=== PATIENT | female | born 1940 | race Caucasian/White ===

== ENCOUNTER 2016-06-15 07:17 | Day surgery (SDC) ==
[2016-02-27 14:19] VITALS: BMI 35.9
[2016-06-15] MEDS: TETRACAINE 0.5% UNIT-DOSE OP PRN ×3 (07:40→08:10)
[2016-06-15] MEDS: AK-DILATE 10% OPTH SOL OP PRN ×3 (07:40→07:50)
[2016-06-15] MEDS: OCUFEN 0.03% OPTH SOL OP PRN ×3 (07:40→08:10)
[2016-06-15] MEDS: CYCLOGYL 2% OPTH OP PRN ×3 (07:40→07:50)
[2016-06-15] MEDS ORDERED: LIDOCAINE 1% 20 ML MDV ID ONE (07:45)
[2016-06-15] MEDS ORDERED: LIDOCAINE 1% 20 ML MDV ONE (07:45)
[2016-06-15] MEDS ORDERED: ALBUTEROL 0.083% NEB NEB STA (08:10)
[2016-06-15] MEDS ORDERED: TETRACAINE 0.5% OPTH SOL OP ONE (08:10)
[2016-06-15] MEDS ORDERED: BETADINE OPTH PREP OP ONE (09:00)
[2016-06-15] MEDS ORDERED: VERSED ONE (09:00)
[2016-06-15] MEDS ORDERED: SUBLIMAZE ONE (09:00)
[2016-06-15] MEDS ORDERED: LIDOCAINE 1 % AMP 5 ML (SUTURES) INJ ONE (09:05)
[2016-06-15] MEDS ORDERED: EPINEPHRINE 1:1,000 AMP IR ONE (09:05)
[2016-06-15] MEDS ORDERED: TIMOPTIC 0.5% OPTH OP ONE (09:20)
[2016-06-15] MEDS ORDERED: DIAMOX ONE (10:08)
[2016-06-15] MEDS ORDERED: DIAMOX PO ONE (10:08)
[2016-06-15 10:10] VITALS: BP 120/69; TEMP 97.9
--- NOTE | 2016-06-16 10:31 | OP ---
PREOPERATIVE DIAGNOSIS: CORTICAL CATARACT, NUCLEAR SCLEROTIC CATARACT, RIGHT EYE. RIGHT BROW GROWTH PAPILLOMA POSTOPERATIVE DIAGNOSIS: SAME. OPERATION: 1. PHACOEMULSIFICATION ASPIRATION OF CATARACT RIGHT EYE. PLACEMENT OF POSTERIOR CHAMBER LENS. PHACO TIME 38.1 SECONDS AT 5% POWER. LENS MODEL KISHORE [id number]. DIOPTER +19.0D. 2. EXCISIONAL BIOPSY OF RIGHT BROW PAPILLOMA TECHNIQUE: CLEAR CORNEA. ANESTHESIA: TOPICAL ANESTHESIA W/ANESTHESIA MONITORING. OPERATIVE REPORT: Topical anesthesia consisting of Tetracaine was applied to the cornea and Xylocaine Methyl Paraben free of MFP was injected intracamerally into the anterior chamber. The patient was then brought into the operating room , prepped and draped in the usual ophthalmic manner. A lid speculum was placed and the operating microscope was used. A paracentesis was made at the 3 o' clock position. A clear corneal incision was made just out to the limbus. The anterior chamber was entered just inside the clear cornea. Viscoelastic was injected into the anterior chamber. A capsulotomy was performed with a bent # 27 gauge needle. Phacoemulsification was then performed in the posterior chamber. After completion of the phacoemulsification, residual cortical material was aspirated with the irrigation-aspiration system. The posterior capsule was polished. Viscoelastic was injected into the anterior and posterior chambers to inflate the capsular bag. Lens were placed via an Unfolder system and stabilized in the bag. Viscoelastic was removed from the anterior chamber. The wound was checked for any leakage. The four sponges were removed from the fornix. Topical antibiotic steroid and nonsteroidal drops were also applied to the cornea. A Cabrera shield was applied. Papilloma growth right eye: Local anesthesia was infiltrated around growth. Area was prepped with Betadine and draped. The growth was excised and bed was cauterized. Antibiotic ointment was applied. The patient left the operating room in good condition without any complications. INTRAOPERATIVE MEDICATIONS: Xylocaine Methyl Paraben Free MPF MTDD
== END 2016-06-15 10:22 | disposition home or self-care (01) ==
LOC: SURG 07:17
PROVIDERS: ATTEND Ophthalmology
DX: H25.11 Age-related nuclear cataract, right eye (principal); L82.1 Other seborrheic keratosis; H53.8 Other visual disturbances
CPT/HCPCS: 94640

== ENCOUNTER 2017-01-21 17:23 | Emergency (ER) ==
[2017-01-21 17:23] VITALS: BMI 35.9
[2017-01-21 17:32] VITALS: BP 116/64; TEMP 98.1
[2017-01-21] MEDS ORDERED: MORPHINE 4 MG/ML VIAL IVP STA (17:40)
[2017-01-21] MEDS ORDERED: ZOFRAN 4 MG/2 ML IVP STA (17:40)
[2017-01-21] MEDS ORDERED: ZOFRAN 4 MG/2 ML IM STA (17:41)
[2017-01-21] MEDS ORDERED: MORPHINE 10 MG/ML SYRINGE IM STA (17:41)
--- NOTE | 2017-01-21 17:46 | ED.PDOC ---
General ED Provider: Dr. ROSALES PETERSON Chief Complaint: Back Pain Stated Complaint: BACK PAIN Time Seen by Physician: 17:30 (SEEN WITH RIANA AT ALL TIMES ) Mode of Arrival: Walk-In Information Source: Patient Exam Limitations: No limitations Primary Care Provider: MARTHA LOMAX Nursing and Triage Documentation Reviewed and Agree: Yes (NO INJURY ) Musculoskeletal Complaint Exam - Back Pain Complaint/Exam Mechanism of Injury: Reports: No known trauma Onset/Duration: CHRONIC AWAITING SURGERY FOR BACK PROBLEMS Symptoms Are: Still present Timing: Constant Episodes Lasting: Days Initial Severity: Moderate Current Severity: Moderate Location: Reports: Discrete Character: Reports: Aching Aggravating: Reports: Movements, Lifting, Bending, Walking Alleviating: Reports: Rest, Position Associated Signs and Symptoms: Denies: Swelling, Redness, Bruising, Fever, Weakness, Numbness, Tingling, Abdominal pain, Flank pain, Bladder incontinence, Bowel incontinence, Weight loss, Pain with weight bearing Related History: Reports: Similar episode TAD Risk Factors: Reports: Hypertension AAA Risk Factors: Reports: None Cauda Equina Risk Factors: Reports: None Epidural Abcess Risk Factors: Reports: None Related Surgical History: Reports: None Focal Tenderness: No Paraspinal Muscle Tenderness: No Paraspinal Muscle Spasm: No Scoliosis: No Lordosis: No Kyphosis: No SLR Test: Right Negative, Left Negative Focal Weakness: Present: None Focal Sensory Loss: Present: None Gait: Present: Normal Differential Diagnoses: Strain, Sprain Review of Systems - Review Of Systems Constitutional: Reports: No symptoms Eyes: Reports: No symptoms Ears, Nose, Mouth, Throat: Reports: No symptoms Respiratory: Reports: No symptoms Cardiac: Reports: No symptoms GI: Reports: No symptoms : Reports: No symptoms Musculoskeletal: Reports: Back pain Skin: Reports: No symptoms Neurological: Reports: No symptoms Endocrine: Reports: No symptoms Hematologic/Lymphatic: Reports: No symptoms All Other Systems: Reviewed and Negative Past Medical History - Past Medical History Previously Healthy: Yes Endocrine: Reports: Dyslipidemia Cardiovascular: Reports: Hypertension Respiratory: Reports: Asthma Hematological: Reports: None Gastrointestinal: Reports: None Genitourinary: Reports: None Neuro/Psych: Reports: None Musculoskeletal: Reports: Other (RIGHT FOOT PAIN) Cancer: Reports: None Last Menstrual Period: na - Surgical History General Surgical History: Reports: Tubal ligation, Orthopedic - Family History Family History: Reports: Unknown - Social History Smoking Status: Former smoker Hx Substance Use: No Alcohol Screening: Occasionally - Immunizations Tetanus Shot up to Date: Yes Physical Exam - Physical Exam Appearance: Well-appearing, No pain distress, Well-nourished Eyes: PILO, EOMI, Conjunctiva clear ENT: Ears normal, Nose normal, Oropharynx normal Respiratory: Airway patent, Breath sounds clear, Breath sounds equal, Respirations nonlabored Cardiovascular: RRR, Pulses normal, No rub, No murmur GI/: Soft, Nontender, No masses, Bowel sounds normal, No Organomegaly Musculoskeletal: Normal strength, ROM intact, No edema, No calf tenderness Skin: Warm, Dry, Normal color Neurological: Sensation intact, Motor intact, Reflexes intact, Cranial nerves intact, Alert, Oriented Psychiatric: Affect appropriate, Mood appropriate Critical Care Note - Critical Care Note Total Time (mins): 0 Course - Course Orders, Labs, Meds: Orders Category Date Time Status Morphine Sulfate [Morphine 10 mg/ml Syringe] MEDS 01/21/17 17:41 Discontinued 8 mg IM ONCE STA Ondansetron HCl/Pf [Zofran 4 mg/2 ml] MEDS 01/21/17 17:41 Discontinued 4 mg IM ONCE STA Ondansetron HCl/Pf [Zofran 4 mg/2 ml] MEDS 01/21/17 17:40 Stop Req 4 mg IVP ONCE STA Medications Discontinued Medications Generic Name Dose Route Start Last Admin Trade Name Freq PRN Reason Stop Dose Admin Morphine Sulfate 8 mg 01/21/17 17:41 Morphine 10 Mg/Ml Syringe IM 01/21/17 17:42 ONCE STA Ondansetron HCl 4 mg 01/21/17 17:41 Zofran 4 Mg/2 Ml IM 01/21/17 17:42 ONCE STA Vital Signs: Temp Pulse Resp BP Pulse Ox 01/21/17 17:24 98.1 F 74 20 116/64 91 L Departure - Departure Time of Disposition: 17:46 Disposition: HOME SELF-CARE Discharge Problem: Low back pain Qualifiers: Chronicity: unspecified Back pain laterality: unspecified Sciatica presence: without sciatica Qualified Code(s): M54.5 - Low back pain Instructions: Chronic Back Pain (ED) Condition: Good Pt referred to PMD for follow-up: Yes Additional Instructions: Please call your Family Physician as soon as possible to schedule a follow-up appointment. Allergies/Adverse Reactions: Allergies cefuroxime axetil [From Ceftin] Adverse Reaction (Verified 01/21/17 17:34) RESPIRATORY, ITCHING, RASH meloxicam Adverse Reaction (Verified 01/21/17 17:34) Rash Home Medications: Ambulatory Orders Aspirin [Aspirin EC] 81 mg PO DAILYWM 01/27/15 Atenolol 100 mg PO BEDTIME 01/27/15 Fluticasone/Salmeterol [Advair Hfa 115-21 Mcg Inhaler] 2 puff IH BID 01/27/15 Gabapentin 300 mg PO TID 01/27/15 Ipratropium/Albuterol Sulfate [Combivent Respimat Inhal [place]] 1 spray IH Q6H PRN 01/27/15 Simvastatin 10 mg PO DAILY 01/27/15 Theophylline Anhydrous [Theophylline] 300 mg PO BID 01/27/15 Verapamil HCl [Verelan Pm] 100 mg PO DAILY 01/27/15 Zolpidem Tartrate [Ambien] 10 mg PO BEDTIME PRN 01/27/15 Hydrocodone/Acetaminophen [Mcdonald 10-325 Tablet] 1 each PO Q6HR PRN #7 tablet 01/16 Alprazolam 0.5 mg PO Q6H PRN 04/13/16 Celecoxib 400 mg PO DAILY 04/13/16 Cholecalciferol (Vitamin D3) [Vitamin D3] 1,000 unit PO DAILY 04/13/16 Multivitamin 1 cap PO DAILY 04/13/16 Tizanidine HCl 4 mg PO Q8H PRN 04/13/16 Hydrochlorothiazide 25 mg PO DAILY 06/15/16
== END 2017-01-21 18:44 | disposition home or self-care (01) ==
LOC: ED 17:23
DX: M54.5 Low back pain (principal)
CPT/HCPCS: 96372; 99283

== ENCOUNTER 2023-04-02 22:32 | Inpatient (IN) ==
--- NOTE | 2023-04-02 22:57 | ED.PDOC ---
General ED Provider: Dr. RANDOLPH RIVERA DO Chief Complaint: Shortness of Air Stated Complaint: 82-year-old female presents [facility] the ER from local [facility] reporting shortness of breath. Is been persistent throughout today. She had a chest x-ray done portable at the retirement and told that she had bilateral pneumonia. Patient has history of COPD and is oxygen dependent with a baseline requirement of 3 L by nasal cannula. EMS reports that her oxygen saturations were in the 80s upon arrival but upon increasing the nasal cannula to 4 L is providing a breathing treatment, oxygen saturation came up to 96%. Patient was otherwise in no acute distress and no other acute interventions given in route. Patient denies chest pain, abdominal pain, GI or symptoms. She does report that she is felt somewhat fevered. Time Seen by Provider: 04/02/23 22:45 Mode of Arrival: Ambulance Information Source: Patient and EMT Exam Limitations: No limitations Primary Care Provider: BRENNON YORK Nursing and Triage Documentation Reviewed and Agree: Yes Review of Systems Review Of Systems Constitutional: Reports Fever, Malaise and Weakness; Denies Chills, Diaphoresis, Sweats or Loss of appetite All Other Systems: Reviewed and Negative [facility] Medical History SNHL (sensorineural hearing loss) H90.5 - Unspecified sensorineural hearing loss (ICD-10) Surgical History History of hip replacement Z96.649 - Presence of unspecified artificial hip joint (ICD-10) Female Reproductive History Menstrual Hx Hysterectomy: No Hx Tubal Ligation: Yes Physical Exam Physical Exam Appearance: Reports Well-appearing and Well-nourished; Denies Ill-appearing Ill-appearing: None Pain Distress: None Eyes: Reports PILO and EOMI ENT: Reports Nose normal and Oropharynx normal Neck: Supple Respiratory: Reports Airway patent, Respirations nonlabored and Rhonchi (Left sided, upper lobe predom) Cardiovascular: Reports RRR and Pulses normal GI/: Reports Soft and Nontender Musculoskeletal: Reports Normal strength and No edema Skin: Reports Warm, Dry and Normal color Neurological: Reports Sensation intact Psychiatric: Reports Affect appropriate and Mood appropriate Interpretation EKG Interpretation EKG Interpretation By: ED Physician Time of EKG #1: 22:55 Rate: Normal Rhythm: Sinus Ectopy: None [place]: NL ST Segment: Normal Re-Evaluation Re-Evaluation Time of Re-Evaluation: 00:54 Status: Unchanged Vital Signs Stable: Yes Appearance: NAD CV: RRR Additional Comments: I reviewed the patient's labs and she has an increase in her bilirubin as well as her alkaline phosphatase. I do not have a reason by history to explain these findings. She has a chronic anemia and does feel pale more so than jaundiced however jaundice could be at play. She also has a significant elevation in her BNP and supported by the findings on CT scan. CT also notes the possibility of mucous plugging as well as fluid collection with malignancy not excluded. This is concerning given the right-sided nature of it and proximity to the liver in the case of an acute liver failure or malignancy causing transudate. I have ordered a CT scan of the abdomen pelvis and this patient will likely require transfer for further management and stabilization Re-Evaluation Time of Re-Evaluation: 02:24 Status: Unchanged Appearance: Other (anxious) Skin: Warm and Dry Neuro: Alert and Oriented X3 CV: RRR Additional Comments: pt BP is persistently low. will give fluid bolus and trickle rate to try and improve, but will do this cautiously due to the elevated BNP and hypoxia. Will consider pressors to include trial of push dose trial if pressure does not improve quickly. Pt will require transfer for possible mucous plug, but also for what may be new onset CHF and hepatic congestion since I cannot find any record of previous CHF diagnosis. Pt will require Pulmonology as well as Cardiology in my opinion. Physician Notification Case Discussed [facility] Time [facility] Notification: 02:45 Admit To: Inpatient and Other (transfer) Critical Care Note Critical Care Note Total Critical Care Time (mins): 180 Comments: Acute on chronic respiratory failure, new onset heart failure, constant cardiac monitoring, pressor dosage, diuretics as well as fluid bolus. Cardiac output measure control Course Course 04/02/23 22:53 04/02/23 22:53 Orders, Labs, Meds: Lab Review 04/02/23 04/02/23 04/02/23 22:42 22:53 23:00 WBC 9.90 RBC 3.87 L Hgb 11.2 L Hct 36.0 L MCV 93.0 MCH 28.9 MCHC 31.1 L RDW Coeff of Kathrin 15.9 H Plt Count 135 L Neutrophils % (Manual) 77.0 H Band Neutrophils % 8.0 H Lymphocytes % (Manual) 1.0 L Monocytes % (Manual) 7.0 Metamyelocytes % 5.0 H Myelocytes % 2.0 H Anisocytosis Not present Sodium 131.1 L Potassium 4.79 Chloride 91.2 L Carbon Dioxide 32.0 H Anion Gap 12.69 BUN 37.9 H Creatinine 1.24 Estimated GFR (MDRD) 41.00 BUN/Creatinine Ratio 30.56 Glucose 110.2 H Calcium 9.11 Total Bilirubin 1.72 H AST 49.1 H ALT 43.0 H Alkaline Phosphatase 146.1 H Troponin I 0.048 NT-Pro-B Natriuret Pep 95931 H Total Protein 7.97 Albumin 4.13 Globulin 3.84 Albumin/Globulin Ratio 1.07 Influ A Molecular Assay Negative by naat Influ B Molecular Assay Negative by naat SARS CoV-2 RNA Rapid KIMBERLEY Negative Orders Category Date Time Status EKG-(ED ONLY) Stat CARDIO 04/02/23 22:41 Completed NEBULIZER TREATMENT Stat CARDIO 04/02/23 22:47 Completed NEBULIZER TREATMENT Stat CARDIO 04/02/23 23:03 Completed NPO REMINDER: IMAGING ONCE CARE 04/02/23 22:41 Completed CBC W/ AUTO DIFF Stat LAB 04/02/23 22:53 Completed CMP [COMPREHENSIVE METABOLIC PANEL] Stat LAB 04/02/23 22:53 Completed COVID [SARS COV-2 RNA RAPID [place]IMBERLEY] Stat LAB 04/02/23 23:00 Completed FLU A & B MOLECULAR [FLU A/B MOLECULAR] Stat LAB 04/02/23 23:00 Completed MANUAL DIFFERENTIAL Stat LAB 04/02/23 22:53 Completed PROBNP ED [NT-PROBNP(ED)] Stat LAB 04/03/23 Completed TROPONIN I Stat LAB 04/03/23 00:45 Completed Albuterol Sulfate 0.083% Neb [Albuterol 0.083% Neb] Meds 04/02/23 23:03 Discontinued 2.5 mg NEB ONCE STA Furosemide [Lasix] Meds 04/03/23 00:53 Discontinued 60 mg IVP ONCE ONE Lorazepam [Ativan] Meds 04/03/23 02:06 Discontinued 0.5 mg IVP ONCE ONE Morphine Sulfate [Morphine 4 mg/ml Syringe] Meds 04/03/23 02:06 Discontinued 2 mg IVP ONCE ONE Phenylephrine Inj [Phenylephrine] Meds 04/03/23 02:43 Discontinued 10,000 mcg .ROUTE .STK-MED ONE Phenylephrine Inj [Phenylephrine] 10,000 mcg Meds 04/03/23 02:30 Active 0.9 % Sodium Chloride [Sodium Chloride] 250 ml IV TITRATION Piperacillin Sodium/Tazobactam [Zosyn 3.375 gm] 3.375 Meds 04/03/23 02:04 Discontinued gm 0.9 % Sodium Chloride [Sodium Chloride 100Ml] 100 ml IV ONCE Sodium Chloride 0.9% [Sodium Chloride] 500 ml Meds 04/03/23 02:[address] ABDOMEN/PELVIS WO CONTRAST Stat RADS 04/03/23 00:[address] CHEST W/CONTRAST Stat RADS 04/02/23 22:40 Completed Medications Generic Name Dose Route Start Last Admin Trade Name Freq PRN Reason Stop Dose Admin Phenylephrine HCl 10,000 mcg/ 251 mls @ 63.553 mls/hr 04/03/23 02:30 04/03/23 02:47 Sodium Chloride IV 0.5 mcg/kg/min TITRATION ANNALISE 63.6 mls/hr Administration Protocol 0.5 MCG/KG/MIN Discontinued Medications Generic Name Dose Route Start Last Admin Trade Name Freq PRN Reason Stop Dose Admin Albuterol Sulfate 2.5 mg 04/02/23 23:03 04/02/23 23:16 Albuterol Sulfate 0.083% Vial.Neb NEB 04/02/23 23:04 2.5 mg ONCE STA Administration Furosemide 60 mg 04/03/23 00:53 04/03/23 01:17 Furosemide Inj 100 Mg/10 Ml Vial IVP 04/03/23 00:54 60 mg ONCE ONE Administration Sodium Chloride 500 mls @ 500 mls/hr 04/03/23 02:04 04/03/23 02:20 Sodium Chloride IV 04/03/23 03:03 500 mls/hr BOLUS STA Administration Piperacillin Sod/Tazobactam 100 mls @ 200 mls/hr 04/03/23 02:04 04/03/23 02:21 Sod 3.375 gm/ Sodium Chloride IV 04/03/23 02:33 200 mls/hr ONCE ONE Administration Lorazepam 0.5 mg 04/03/23 02:06 04/03/23 02:14 Lorazepam Inj 2 Mg/Ml Vial IVP 04/03/23 02:07 0.5 mg ONCE ONE Administration Morphine Sulfate 2 mg 04/03/23 02:06 Morphine Sulfate 4 Mg/Ml Syringe IVP 04/03/23 02:07 ONCE ONE Vital Signs: Temp Pulse Resp BP Pulse Ox O2 Flow Rate 04/03/23 02:47 81 22 H 99/50 L 04/03/23 01:26 80 18 96/47 L 96 3 04/02/23 22:35 97.1 F L 80 26 H 95/47 L 96 Discharge Plan Discharge Patient Disposition: TSF ICF Discharge Problem: Heart failure with acute decompensation, type unknown Qualifiers: Heart failure type: unspecified Qualified Code(s): I50.9 - Heart failure, unspecified Acute and chronic respiratory failure Qualifiers: Respiratory failure complication: hypoxia Qualified Code(s): J96.21 - Acute and chronic respiratory failure with hypoxia Prescriptions: No Action aspirin 81 MG tablet,delayed release (DR/EC) 81 mg PO DAILYWM simvastatin 20 MG tablet 10 mg PO BEDTIME theophylline 600 MG tablet extended release 24 hr 300 mg PO BID gabapentin 300 MG capsule 300 mg PO TID verapamil [Verelan PM] 100 MG capsule, [address] 100 mg PO DAILY zolpidem [Ambien] 10 MG tablet 10 mg PO BEDTIME PRN (Reason: SLEEP) atenolol 50 MG tablet 100 mg PO BEDTIME fluticasone propion-salmeterol [Advair HFA] 8 GM HFA aerosol inhaler 2 puff inhalation BID Combivent Respimat 1 SPRAY mist 1 spray inhalation Q6H PRN (Reason: Bronchospasm) hydrocodone-acetaminophen [[place]onson] 1 EACH tablet 1 ea PO Q6HR PRN (Reason: PAIN) Qty: 7 0RF tizanidine 4 MG tablet 4 mg PO Q8H PRN (Reason: Spasms) alprazolam 0.5 MG tablet 0.5 mg PO Q6H PRN (Reason: Anxiety) multivitamin 1 CAP capsule 1 cap PO DAILY cholecalciferol (vitamin D3) [Vitamin D3] 1,000 UNIT capsule 1,000 unit PO DAILY celecoxib 400 MG capsule 400 mg PO DAILY hydrochlorothiazide 25 MG tablet 25 mg PO DAILY lorazepam [Ativan] 0.5 mg tablet 0.5 mg PO DAILY azithromycin 250 mg tablet 250 mg PO DAILY Rx Instructions: start on day 2 of therapy losartan-hydrochlorothiazide 50-12.5 mg tablet 0.5 tab PO DAILY melatonin 1 mg tablet 3 mg PO BEDTIME polyethylene glycol 3350 [Miralax] 17 gram/dose powder 17 g PO DAILY prednisone 20 mg tablet 20 mg PO DAILY Rx Instructions: DAILY X 5 DAYS HAD FIRST DOSE TODAY AT 4PM ramelteon 8 mg tablet 8 mg PO BEDTIME Trelegy Ellipta 100-62.5-25 mcg blister with device 1 inh inhalation DAILY Trelegy Ellipta 100-62.5-25 mcg blister with device 1 inh inhalation DAILY sertraline 100 mg tablet 100 mg PO DAILY doxycycline hyclate 100 mg tablet 100 mg PO BID Rx Instructions: BID X5 DAYS HAD FIRST 2 DOSES TODAY (04/02/23) Eliquis 2.5 mg tablet 2.5 mg PO BID Eye Multivitamin 2,148 mcg-113 mg-45 mg-17.4mg tablet 1 tab PO BID Rx Instructions: administer with AM and PM meals diclofenac sodium 1 % gel 2 g topical ONCE Rx Instructions: apply to single elbow, wrist or hand; for hand includes palm/fingers/back of hand buspirone 7.5 mg tablet 7.5 mg PO TID ipratropium-albuterol 0.5 mg-3 mg(2.5 mg base)/3 mL solution for nebulization 3 ml INHALATION QID albuterol sulfate 90 mcg/actuation HFA aerosol inhaler 2 puff INHALATION Q4H PRN (Reason: shortness of breath or wheezing) benzonatate 200 mg capsule 200 mg PO Q8H PRN (Reason: cough) dextromethorphan-guaifenesin 10-100 mg/5 mL liquid 5 ml PO Q8H PRN (Reason: cough) tramadol 50 mg tablet 50 mg PO Q8H PRN (Reason: pain) acetaminophen [Pain Reliever ES(acetaminophn)] 500 mg tablet 500 mg PO Q6H PRN (Reason: pain) venlafaxine 37.5 mg capsule,extended release 24hr 37.5 mg PO QDAY lorazepam [Ativan] 0.5 mg tablet 0.25 mg PO QDAY Trelegy Ellipta 100-62.5-25 mcg blister with device 1 inh inhalation QDAY loratadine 10 mg capsule 10 mg PO QDAY losartan 50 mg tablet 50 mg PO QDAY albuterol sulfate 2.5 mg /3 mL (0.083 %) solution for nebulization 2.5 mg inhalation Q6H furosemide 40 mg tablet 40 mg PO .prn PRN (Reason: RAPID WEIGHT GAIN/SOB) Did you review [place] [employer] for ALL controlled substances?: Not Applicable ED Provider: RANDOLPH RIVERA Condition: Fair Physician Progress Note: [] 82-year-old female with history of COPD and chronically oxygen dependent presents by EMS after feeling unwell and weak with recent diagnosis of bilateral pneumonia diagnosed today. She has had a single dose of antibiotics since her diagnosis. She arrives afebrile nontoxic doubt sepsis. She does have coarse breath sounds on the right greater than left concerning for pneumonia. She is otherwise stable on 3 to 4 L of oxygen by nasal cannula. Will give another breathing treatment of albuterol in addition to consideration of 3% normal saline to help thin the mucus for pulmonary toilet. Will discuss with respiratory further recommendations. Since she has already had a plain film today, given her age, will obtain CT with contrast to further evaluate to better quantify and localize the pneumonia. Low suspicion for other acute cardiopulmonary processes to include but not limited to ACS, OK, PE, pneumothorax, dissection or tamponade. The patient is not tachycardic nor febrile on presentation, her blood pressure is a little soft. I do not feel that she is septic and will not pursue a septic workup at this time. If she is able to maintain her oxygen saturation within 1 L of her baseline requirement, and able to utilize nasal cannula, she may be a suitable candidate for outpatient treatment. Will assess laboratory workup for potential underlying contributing factors for her generalized weakness.
[2023-04-02 22:58] LABS: HEMOGLOBIN 11.2 g/dl (12.0-16.0); MEAN CORPUSCULAR HEMOGLOBIN 28.9 pg (27.0-31.0); MEAN CORPUSCULAR HGB CONC 31.1 (31.8-35.4); PLATELET COUNT 135 10^3/uL (140-440); RDW COEFFICIENT OF VARIATION 15.9 % (11.6-14.8); RED BLOOD COUNT 3.87 10^6/ul (4.20-5.40)
[2023-04-02] MEDS ORDERED: ALBUTEROL 0.083% NEB NEB STA (23:03)
[2023-04-02 23:11] LABS: ALBUMIN 4.13 g/dL (3.5-5.0); ALKALINE PHOSPHATASE 146.1 U/L (53-141); ASPARTATE AMINO TRANSFERASE 49.1 U/L (14-36); BILIRUBIN,TOTAL 1.72 mg/dL (0.2-1.3); BLOOD UREA NITROGEN 37.9 mg/dL (7-17); CALCIUM 9.11 mg/dL (8.4-10.2); CHLORIDE 91.2 mmol/L (98-107); CREATININE 1.24 mg/dL (0.60-1.30); GLUCOSE 110.2 mg/dL (74-106); POTASSIUM 4.79 mmol/L (3.5-5.1); SODIUM 131.1 mmol/L (134.5-145); TOTAL PROTEIN 7.97 g/dL (6.3-8.2)
[2023-04-02 23:32] LABS: ANISOCYTOSIS NOT PRESENT (NOT PRESENT)
[2023-04-02 23:34] LABS: MOLECULAR FLU A NEGATIVE BY NAAT (NEGATIVE); MOLECULAR FLU B NEGATIVE BY NAAT (NEGATIVE)
[2023-04-02 23:47] LABS: SARS COV-2 RNA RAPID NAAT NEGATIVE (NEGATIVE)
--- NOTE | 2023-04-03 00:38 | CT ---
EXAM: CT CHEST WITH INTRAVENOUS CONTRAST 04/02/2023. SAGITTAL AND CORONAL REFORMATTED IMAGES OBTAINE D HISTORY: Shortness of breath. Pneumonia COMPARISON: 06/11/2021 FINDINGS: Moderate cardiomegaly. No pericardial effusion. Indeterminate mediastinal lymphadenopathy may be reactive. Aorticppulmonary lymph node on image 23 measures 1.3 x 1.3 cm. Precarinal lymph n ode on image 24 measures 1.5 x 1.7 cm. Chronic emphysematous change. Mild left lower lobe atelectasis. Extensive nodular consolidation throughout the right lower lobe. Debris is present within the proxim al right lower lobe bronchus as seen on image 32. This could relate to mucous plugging. A small sofiya unt of nodular infiltrate also extends into the right middle lobe. This likely represents extensive right-sided pneumonia. Follow-up is recommended to document resolution. Neoplastic process not excl uded on the current study. Cystic bronchiectasis is present within the right lower lobe. Limited views of the upper abdomen shows a partially visualized herniated segment of colon at the lat eral left abdomen. This is partially visualized on the inferior most image. IMPRESSION: 1. Extensive consolidation throughout the right lower lobe. A small amount of nodular infiltrate al so involves the right middle lobe. This most likely represents pneumonia. Neoplastic process not st udy. Follow-up recommended to document resolution. 2. Debris within the proximal right mainstem bronchus. This could relate to mucous plugging. Other etiologies not excluded. 3. Indeterminate mediastinal lymphadenopathy. Reference measurements above. 4. Moderate cardiomegaly. 5. Emphysema. 6. Right lower lobe cystic bronchiectasis. 7. Partially visualized herniated segment of colon at the left lateral abdomen on the inferior most image. All CT scans are performed using dose optimization techniques as appropriate to the performed exam an d include at least one of the following: Automated exposure control, adjustment of the mA and/or kV according t o size, and the use of iterative reconstruction technique.
[2023-04-03] MEDS ORDERED: LASIX IVP ONE (00:53)
--- NOTE | 2023-04-03 01:58 | CT ---
EXAM: CT ABDOMEN PELVIS WITHOUT INTRAVENOUS CONTRAST 04/03/2023. SAGITTAL AND CORONAL REFORMATTED IM AGES OBTAINED HISTORY: Elevated liver function tests and shortness of breath COMPARISON: 04/02/2023, 06/11/2021 FINDINGS: No consolidation of the right lung base with cystic bronchiectasis. This likely represents pneumonia. This has been previously described. The inferior aspect of the right lobe of the liver appears increased in size as compared to the prior study. Gallbladder has been removed. The adrenal glands and kidneys show no acute abnormality. There is contrast excretion from both kidn eys to previous contrast administration. Small benign-appearing renal cysts. The spleen and pancreas show no acute abnormality. There is no bowel obstruction. Contrast is present within the urinary bladder. No intraluminal blad monster filling defects. There are no free air. No free fluid. No evidence of appendicitis. Left lateral abdominal wall hernia. This contains a short segment of nonobstructed colon. No eviden ce of incarceration or strangulation. Diverticulosis without diverticulitis. Postoperative fusion of L4-S1. Severe degenerative disc disease of the lower thoracic and lumbar spi ne. IMPRESSION: 1. Consolidation at the right lung base with cystic bronchiectasis. This likely represents pneumon ia. 2. The inferior right lobe of the liver appears enlarged as compared to the prior study. This has l obular contours. Contrast enhanced CT as well as hepatic protocol MRI could be considered for furthe r evaluation. 3. Status post cholecystectomy. 4. Contrast excretion from both kidneys due to prior contrast administration. 5. Nonobstructive colonic herniation at the left lateral abdominal wall. This appears chronic. The segment of colonic herniation has increased since the prior study. 6. Diverticulosis without diverticulitis. 7. Postoperative fusion of the lower lumbar spine. Severe degenerative disc disease of the lower th oracic and lumbar spine. All CT scans are performed using dose optimization techniques as appropriate to the performed exam an d include at least one of the following: Automated exposure control, adjustment of the mA and/or kV according t o size, and the use of iterative reconstruction technique.
[2023-04-03] MEDS ORDERED: SODIUM CHLORIDE 500 ML IV STA (02:04)
[2023-04-03] MEDS ORDERED: ZOSYN 3.375 GM 3.375 GM in SODIUM CHLORIDE 100ML 100 ML IV ONE ×2 (02:04→14:56)
[2023-04-03] MEDS ORDERED: MORPHINE 4 MG/ML SYRINGE IVP ONE (02:06)
[2023-04-03] MEDS ORDERED: ATIVAN IVP ONE (02:06)
[2023-04-03] MEDS ORDERED: PHENYLEPHRINE ONE (02:43)
[2023-04-03] MEDS: SODIUM CHLORIDE IV SCH (02:47)
[2023-04-03] MEDS: PHENYLEPHRINE IV SCH (02:47)
[2023-04-03] MEDS ORDERED: PHENYLEPHRINE IVP STA (06:12)
[2023-04-03] MEDS ORDERED: SOLU-MEDROL 125 MG IVP ONE (14:58)
[2023-04-03 15:08] LABS: ABG O2 HGB 90.9 % (95-100); ABG PH 7.37 (7.35-7.45); BEecf 11.1 (-2.0-3.0); COHb 2.3 (0.5-1.5); HCO3 36.4 (21-28); MetHb 0.8 (0-1.5); TCO2 38.3 (19-24); sO2 90.2 % (94-98); tHb 10.6 g/dl (11.7-17.4)
[2023-04-03] MEDS ORDERED: DUONEB NEB STA (16:14)
[2023-04-03] MEDS ORDERED: VANCOMYCIN 1 GRAM/200 ML PREMIX 1 GM/200 ML BAG IV ONE (17:18)
[2023-04-03] MEDS ORDERED: TYLENOL PO PRN (17:56)
[2023-04-03 18:27] VITALS: BMI 28.8
[2023-04-03] MEDS: DUONEB NEB SCH ×2 (18:30→23:31)
[2023-04-03] MEDS ORDERED: ULTRAM PO PRN (19:11)
--- NOTE | 2023-04-03 20:24 | PCM ---
Date of Service Date Seen by Provider: 04/03/23 Time Seen by Provider: 15:00 Admit Day/Time Admission Date: 04/03/23 Admission Time: 17:20 Reason for Admission Chief Complaint: BILATERAL PNEUMONIA,CHF Hospital Provider Hospital Provider: AMA SARAH [place]-C[place] [facility] [place] Primary Care Physician: BRENNON YORK History of Present Illness History of Present Illness: Patient is an 82 year old female from [facility] with pmhx of COPD, chronic anticoaguation, anxiety, hypertension, hyperlipidemia, CHF who presents to ER with sob. Patient had been diagnosed with bilateral pna via cxr at [facility] prior to arrival. She was started on antibiotics but only received one dose prior to arriving to ER. In ER she was found to have elevated bnp, was given lasix 60 mg IV. Her BP became low, she was given 500 cc of fluids. She still remained hypotensive and was eventually placed on neosynephrine. CT chest showed extensive right consolidation with concern for mucus plug. Liver enzymes mildly elevated as well. CT a/p showed enlarged liver. She was given zosyn. She was initially accepted at [facility], however could not find any transport. The patient remained in the ER most of the day and her pressor was shut off around 0930. Her BP remained stable throughout the day. She also did not want to be transferred and preferred to stay at this facility. She understands we do not have specialists or the means to perform a bronch if she were to need one. She still wishes to remain at this facility. She was admitted to [facility] for further evaluation and treatment. Case Discussed With Case Discussed With: Patient's case was discussed with the ER Physicians, Dr. Cosby. 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 (ICD-10) Obstructive sleep apnea G47.33 - Obstructive sleep apnea (adult) (pediatric) (ICD-10) Muscle wasting M62.50 - Muscle wasting and atrophy, not elsewhere classified, unspecified site (ICD-10) Pain in right hip M25.551 - Pain in right hip (ICD-10) Hyperlipidemia E78.5 - Hyperlipidemia, unspecified (ICD-10) Hypotension I95.9 - Hypotension, unspecified (ICD-10) Anxiety disorder F41.9 - Anxiety disorder, unspecified (ICD-10) Iron deficiency anemia D50.9 - Iron deficiency anemia, unspecified (ICD-10) SNHL (sensorineural hearing loss) H90.5 - Unspecified sensorineural hearing loss (ICD-10) Surgical History History of hip replacement Z96.649 - Presence of unspecified artificial hip joint (ICD-10) Family History Mother Heart failure FATHER Bone cancer Social History Smoking and tobacco status: Former smoker Allergies Allergies Allergy/AdvReac Type Severity Reaction Status Date / Time cefuroxime axetil AdvReac RESPIRATORY, Verified 04/02/23 22:47 [From Ceftin] ITCHING, RASH cyclobenzaprine AdvReac Unknown Verified 04/02/23 22:47 [From Flexeril] meloxicam AdvReac Rash Verified 04/02/23 22:47 Current Medications Home Medications aspirin 81 mg tablet,delayed release 81 mg PO DAILYWM 01/27/15 [History Confirmed 04/02/23 Last Taken 06/10/16] simvastatin 20 mg tablet 10 mg PO BEDTIME 01/27/15 [History Confirmed 04/02/23 Last Taken 06/14/16] fluticasone fur. 100 mcg-umeclid 62.5 mcg-vilant 25 mcg inhalat.powder (Trelegy Ellipta) 1 inh inhalation QDAY 01/12/23 [History Confirmed 04/02/23 Last Taken Unknown] furosemide 40 mg tablet 40 mg PO .prn PRN RAPID WEIGHT GAIN/SOB 01/12/23 [History Confirmed 04/02/23 Last Taken Unknown] loratadine 10 mg capsule 10 mg PO QDAY 01/12/23 [History Confirmed 04/02/23 Last Taken Unknown] lorazepam 0.5 mg tablet (Ativan) 0.25 mg PO QDAY 01/12/23 [History Confirmed 04/02/23 Last Taken Unknown] acetaminophen 500 mg tablet (Pain Reliever Extra Strength (acetaminophen)) 500 mg PO Q6H PRN pain 04/02/23 [History Confirmed 04/02/23 Last Taken Unknown] albuterol sulfate 90 mcg/actuation aerosol inhaler 2 puff inhalation Q4H PRN shortness of breath or wheezing 04/02/23 [History Confirmed 04/02/23 Last Taken Unknown] apixaban 2.5 mg tablet (Eliquis) 2.5 mg PO BID 04/02/23 [History Confirmed 04/02/23 Last Taken Unknown] azithromycin 250 mg tablet 250 mg PO DAILY 04/02/23 [History Confirmed 04/02/23 Last Taken Unknown] benzonatate 200 mg capsule 200 mg PO Q8H PRN cough 04/02/23 [History Confirmed 04/02/23 Last Taken Unknown] buspirone 7.5 mg tablet 7.5 mg PO TID 04/02/23 [History Confirmed 04/02/23 Last Taken Unknown] dextromethorphan-guaifenesin 10 mg-100 mg/5 mL oral liquid 5 ml PO Q8H PRN cough 04/02/23 [History Confirmed 04/02/23 Last Taken Unknown] diclofenac sodium 1 % topical gel 2 g topical ONCE 04/02/23 [History Confirmed 04/02/23 Last Taken Unknown] doxycycline hyclate 100 mg tablet 100 mg PO BID 04/02/23 [History Confirmed 04/02/23 Last Taken Unknown] fluticasone fur. 100 mcg-umeclid 62.5 mcg-vilant 25 mcg inhalat.powder (Trelegy Ellipta) 1 inh inhalation DAILY 04/02/23 [History Confirmed 04/02/23 Last Taken Unknown] ipratropium 0.5 mg-albuterol 3 mg (2.5 mg base)/3 mL nebulization soln 3 ml inhalation QID 04/02/23 [History Confirmed 04/02/23 Last Taken Unknown] lorazepam 0.5 mg tablet (Ativan) 0.5 mg PO DAILY 04/02/23 [History Confirmed 04/02/23 Last Taken Unknown] losartan 50 mg-hydrochlorothiazide 12.5 mg tablet 0.5 tab PO DAILY 04/02/23 [History Confirmed 04/02/23 Last Taken Unknown] melatonin 1 mg tablet 3 mg PO BEDTIME 04/02/23 [History Confirmed 04/02/23 Last Taken Unknown] polyethylene glycol 3350 17 gram/dose oral powder (Miralax) 17 g PO DAILY 04/02/23 [History Confirmed 04/02/23 Last Taken Unknown] prednisone 20 mg tablet 20 mg PO DAILY 04/02/23 [History Confirmed 04/02/23 Last Taken Unknown] ramelteon 8 mg tablet 8 mg PO BEDTIME 04/02/23 [History Confirmed 04/02/23 Last Taken Unknown] sertraline 100 mg tablet 100 mg PO DAILY 04/02/23 [History Confirmed 04/02/23 Last Taken Unknown] tramadol 50 mg tablet 50 mg PO Q8H PRN pain 04/02/23 [History Confirmed 04/02/23 Last Taken Unknown] vitamins A,C,X-lzjb-xixndm 2,148 mcg-113 mg-45 mg-17.4 mg tablet (Eye Multivitamin) 1 tab PO BID 04/02/23 [History Confirmed 04/02/23 Last Taken Unknown] Home Acetaminophen (Acetaminophen 325 Mg Tablet) 650 mg PO Q4H PRN PRN Reason: Mild Pain Albuterol/Ipratropium (Ipratropium/Albuterol Vial.Neb) 3 ml NEB RTQ6H [facility] Last Admin: 04/04/23 05:49 Dose: 3 ml Apixaban (Apixaban 5 Mg Tab) 2.5 mg PO BID [facility] Last Admin: 04/04/23 08:50 Dose: 2.5 mg Aspirin (Aspirin 81 Mg Tablet.Dr) 81 mg PO DAILYWM2 [facility] Last Admin: 04/04/23 08:48 Dose: 81 mg Budesonide/Formoterol Fumarate (Budesonide/Formoterol Fumarate 160/4.5 Mcg Inhaler) 2 puff IH BID [facility] Last Admin: 04/04/23 09:18 Dose: 2 puff Buspirone HCl (Buspirone Hcl 10 Mg Tablet) 7.5 mg PO TID [facility] Last Admin: 04/04/23 08:49 Dose: 7.5 mg Phenylephrine HCl 10,000 mcg/ (Sodium Chloride) 251 mls @ 63.553 mls/hr IV TITRATION ANNALISE; Protocol Last Admin: 04/04/23 04:18 Dose: Not Given Piperacillin Sod/Tazobactam (Sod 4.5 gm/ Sodium Chloride) 100 mls @ 200 mls/hr IV Q6HR ANNALISE Stop: 04/06/23 20:59 Last Admin: 04/04/23 05:16 Dose: 200 mls/hr VANCOMYCIN/WATER FOR INJ (PEG) (Vancomycin 1.25 Gm/250 Ml Bag) 1.25 gm in 250 mls @ 250 mls/hr IV DAILY ANNALISE Stop: 04/07/23 08:59 Last Admin: 04/04/23 09:18 Dose: 250 mls/hr Loratadine (Loratadine 10 Mg Tablet) 10 mg PO DAILY [facility] Last Admin: 04/04/23 08:49 Dose: 10 mg Lorazepam (Lorazepam 0.5 Mg Tablet) 0.25 mg PO DAILY AN[facility] Last Admin: 04/04/23 08:49 Dose: 0.25 mg Methylprednisolone Sodium Succinate (Methylprednisolone Sod Succ/Pf 40 Mg/Ml Vial) 40 mg IVP Q8HR ANNALISE Last Admin: 04/04/23 05:01 Dose: 40 mg Sertraline HCl (Sertraline Hcl 50 Mg Tablet) 100 mg PO DAILY AN[facility] Last Admin: 04/04/23 08:49 Dose: 100 mg Simvastatin (Simvastatin 10 Mg Tablet) 10 mg PO BEDTIME AN[facility] Last Admin: 04/03/23 21:31 Dose: 10 mg Sodium Chloride (0.9% Sodium Chloride 10 Ml Disp.Syrin) 1 syr IVF Q8HR ANNALISE Last Admin: 04/04/23 05:01 Dose: 1 syr Temazepam (Temazepam 15 Mg Capsule) 30 mg PO BEDTIME ANNALISE Last Admin: 04/03/23 21:31 Dose: 30 mg Tiotropium [place] (Tiotropium [place] 18 Mcg Cap.W.Dev) 1 cap IH DAILY ANNAL[facility] Last Admin: 04/04/23 09:18 Dose: 1 cap Tramadol HCl (Tramadol Hcl 50 Mg Tablet) 50 mg PO Q8H PRN PRN Reason: MODERATE PAIN Discontinued Medications Albuterol Sulfate (Albuterol Sulfate 0.083% Vial.Neb) 2.5 mg NEB ONCE STA Stop: 04/02/23 23:04 Last Admin: 04/02/23 23:16 Dose: 2.5 mg Albuterol/Ipratropium (Ipratropium/Albuterol Vial.Neb) 3 ml NEB ONCE STA Stop: 04/03/23 16:15 Last Admin: 04/03/23 16:21 Dose: 3 ml Furosemide (Furosemide Inj 100 Mg/10 Ml Vial) 60 mg IVP ONCE ONE Stop: 04/03/23 00:54 Last Admin: 04/03/23 01:17 Dose: 60 mg Sodium Chloride (Sodium Chloride) 500 mls @ 500 mls/hr IV BOLUS STA Stop: 04/03/23 03:03 Last Infusion: 04/03/23 03:20 Dose: Infused Piperacillin Sod/Tazobactam (Sod 3.375 gm/ Sodium Chloride) 100 mls @ 200 mls/hr IV ONCE ONE Stop: 04/03/23 02:33 Last Admin: 04/03/23 02:21 Dose: 200 mls/hr Piperacillin Sod/Tazobactam (Sod 3.375 gm/ Sodium Chloride) 100 mls @ 200 mls/hr IV ONCE ONE Stop: 04/03/23 15:25 Last Admin: 04/03/23 15:15 Dose: 200 mls/hr VANCOMYCIN/WATER FOR INJ (PEG) (Vancomycin 1 Gram/200 Ml Premix) 1 gm in 200 mls @ 200 mls/hr IV ONCE ONE Stop: 04/03/23 18:17 Last Admin: 04/03/23 17:26 Dose: 200 mls/hr Lorazepam (Lorazepam Inj 2 Mg/Ml Vial) 0.5 mg IVP ONCE ONE Stop: 04/03/23 02:07 Last Admin: 04/03/23 02:14 Dose: 0.5 mg Methylprednisolone Sodium Succinate (Methylprednisolone Sod Succ/Pf 125 Mg/2 Ml Vial) 125 mg IVP ONCE ONE Stop: 04/03/23 14:59 Last Admin: 04/03/23 15:16 Dose: 125 mg Morphine Sulfate (Morphine Sulfate 4 Mg/Ml Syringe) 2 mg IVP ONCE ONE Stop: 04/03/23 02:07 Last Admin: 04/03/23 06:35 Dose: Not Given Non-Formulary Medication (Ramelteon) 8 mg PO BEDTIME ANNALISE Last Admin: 04/03/23 21:17 Dose: Not Given Phenylephrine HCl (Phenylephrine Inj 10,000 Mcg/Ml Vial) 500 mcg IVP ONCE STA Stop: 04/03/23 06:13 Last Admin: 04/03/23 06:34 Dose: 500 mcg Review of Systems Constitutional: Reports Fatigue and Weakness; Denies Fever Head: Reports Normocephalic and Atraumatic Cardiovascular: Denies Chest pain, Chest Pressure or Edema Respiratory: Reports Cough and Shortness of air Gastrointestinal: Denies Nausea, Vomiting, Diarrhea, Abdominal pain or Melena Genitourinary: Denies Dysuria or Frequency Dermatologic: Denies Rashes Neurological: Reports Weakness Physical examination Most Recent Vital Signs: Most Recent Vital Signs Temperature 97.9 F 04/03/23 18:10 Temperature Source Oral 04/03/23 18:10 Temperature Source Temporal Artery Scan 04/03/23 14:01 Pulse Rate 83 04/03/23 18:10 Respiratory Rate 18 04/03/23 18:10 Blood Pressure 113/51 L 04/03/23 14:01 Blood Pressure Left Arm 97/59 04/03/23 18:10 Blood Pressure Position Supine 04/03/23 18:10 O2 Sat by Pulse Oximetry 94 L 04/03/23 18:10 Oxygen Delivery Method Nasal Cannula 04/03/23 19:56 Oxygen Flow Rate 3 04/03/23 19:56 Height 5 ft 7 in 04/03/23 18:10 Weight 183 lb 11.2 oz 04/03/23 18:10 Telemetry Type Remote Telemetry 04/03/23 19:00 Telemetry Monitoring Continues 04/03/23 19:00 Telemetry Heart Rate 83 04/03/23 19:00 Telemetry SPO2 95 04/03/23 19:00 EKG MI Interval 0.15 04/03/23 19:00 EKG QRS Interval 0.09 04/03/23 19:00 Telemetry Strip Reading SR 04/03/23 19:00 Appearance: Positive Alert and Oriented x3 and Ill-Appearing Skin: Positive [place], Warm and Good Turgor; Negative Rashes HEENT: Positive Normocephalic and Atraumatic Neck: Positive Supple and Midline Trachea Chest/Lungs: Positive Symmetrical With Equal Breath Sounds and Other (+diminished breath sounds elroy, taking shallow breaths, wheezing noted elroy. ) Heart: Positive RRR GI/: Positive Soft, Nontender, Bowel Sounds Normal and No Distention Extremities: Negative Edema Neurological: Positive Other (+generalized weakness ) Labs This Visit Labs This Visit: Labs This Visit 04/02/23 04/02/23 04/02/23 22:42 22:53 23:00 WBC 9.90 RBC 3.87 L Hgb 11.2 L Hct 36.0 L MCV 93.0 MCH 28.9 MCHC 31.1 L RDW Coeff of Kathrin 15.9 H Plt Count 135 L Neutrophils % (Manual) 77.0 H Band Neutrophils % 8.0 H Lymphocytes % (Manual) 1.0 L Monocytes % (Manual) 7.0 Metamyelocytes % 5.0 H Myelocytes % 2.0 H Anisocytosis Not present Puncture Site Base Excess O2 Saturation ABG pH ABG pCO2 ABG pO2 ABG HCO3 ABG Total CO2 Kip Test Hemoglobin Oxyhemoglobin Carboxyhemoglobin Total Hemoglobin O2 Delivery Device Oxygen Liter Flow Sodium 131.1 L Potassium 4.79 Chloride 91.2 L Carbon Dioxide 32.0 H Anion Gap 12.69 BUN 37.9 H Creatinine 1.24 Estimated GFR (MDRD) 41.00 BUN/Creatinine Ratio 30.56 Glucose 110.2 H Lactic Acid Calcium 9.11 Total Bilirubin 1.72 H AST 49.1 H ALT 43.0 H Alkaline Phosphatase 146.1 H Troponin I 0.048 NT-Pro-B Natriuret Pep 23532 H Total Protein 7.97 Albumin 4.13 Globulin 3.84 Albumin/Globulin Ratio 1.07 Procalcitonin Influ A Molecular Assay Negative by naat Influ B Molecular Assay Negative by naat SARS CoV-2 RNA Rapid KIMBERLEY Negative 04/03/23 04/03/23 15:00 15:45 WBC RBC Hgb Hct MCV MCH MCHC RDW Coeff of Kathirn Plt Count Neutrophils % (Manual) Band Neutrophils % Lymphocytes % (Manual) Monocytes % (Manual) Metamyelocytes % Myelocytes % Anisocytosis Puncture Site Rrad Base Excess 11.1 H O2 Saturation 90.2 L ABG pH 7.37 ABG pCO2 63.0 H ABG pO2 61.0 L ABG HCO3 36.4 H ABG Total CO2 38.3 H Kip Test Pos Hemoglobin 0.8 Oxyhemoglobin 90.9 L Carboxyhemoglobin 2.3 H Total Hemoglobin 10.6 L O2 Delivery Device Cannula Oxygen Liter Flow 3.00 Sodium Potassium Chloride Carbon Dioxide Anion Gap BUN Creatinine Estimated GFR (MDRD) BUN/Creatinine Ratio Glucose Lactic Acid 1.39 Calcium Total Bilirubin AST ALT Alkaline Phosphatase Troponin I NT-Pro-B Natriuret Pep Total Protein Albumin Globulin Albumin/Globulin Ratio Procalcitonin 19.54 H Influ A Molecular Assay Influ B Molecular Assay SARS CoV-2 RNA Rapid [facility] Imaging Imaging: EXAM: CT CHEST WITH INTRAVENOUS CONTRAST 04/02/2023. SAGITTAL AND CORONAL REFORMATTED IMAGES OBTAINED HISTORY: Shortness of breath. Pneumonia COMPARISON: 06/11/2021 FINDINGS: Moderate cardiomegaly. No pericardial effusion. Indeterminate mediastinal lymphadenopathy may be reactive. Aorticppulmonary lymph node on image 23 measures 1.3 x 1.3 cm. Precarinal lymph node on image 24 measures 1.5 x 1.7 cm. Chronic emphysematous change. Mild left lower lobe atelectasis. Extensive nodular consolidation throughout the right lower lobe. Debris is present within the proximal right lower lobe bronchus as seen on image 32. This could relate to mucous plugging. A small amount of nodular infiltrate also extends into the right middle lobe. This likely represents extensive right- sided pneumonia. Follow-up is recommended to document resolution. Neoplastic process not excluded on the current study. Cystic bronchiectasis is present within the right lower lobe. Limited views of the upper abdomen shows a partially visualized herniated segment of colon at the lateral left abdomen. This is partially visualized on the inferior most image. IMPRESSION: 1. Extensive consolidation throughout the right lower lobe. A small amount of nodular infiltrate also involves the right middle lobe. This most likely represents pneumonia. Neoplastic process not study. Follow-up recommended to document resolution. 2. Debris within the proximal right mainstem bronchus. This could relate to mucous plugging. Other etiologies not excluded. 3. Indeterminate mediastinal lymphadenopathy. Reference measurements above. 4. Moderate cardiomegaly. 5. Emphysema. 6. Right lower lobe cystic bronchiectasis. 7. Partially visualized herniated segment of colon at the left lateral abdomen on the inferior most image. EXAM: CT ABDOMEN PELVIS WITHOUT INTRAVENOUS CONTRAST 04/03/2023. SAGITTAL AND CORONAL REFORMATTED IMAGES OBTAINED HISTORY: Elevated liver function tests and shortness of breath COMPARISON: 04/02/2023, 06/11/2021 FINDINGS: No consolidation of the right lung base with cystic bronchiectasis. This likely represents pneumonia. This has been previously described. The inferior aspect of the right lobe of the liver appears increased in size as compared to the prior study. Gallbladder has been removed. The adrenal glands and kidneys show no acute abnormality. There is contrast excretion from both kidneys to previous contrast administration. Small benign-appearing renal cysts. The spleen and pancreas show no acute abnormality. here is no bowel obstruction. Contrast is present within the urinary bladder. No intraluminal bladder filling defects. There are no free air. No free fluid. No evidence of appendicitis. Left lateral abdominal wall hernia. This contains a short segment of nonobstructed colon. No evidence of incarceration or strangulation. Diverticulosis without diverticulitis. Postoperative fusion of L4-S1. Severe degenerative disc disease of the lower thoracic and lumbar spine. IMPRESSION: 1. Consolidation at the right lung base with cystic bronchiectasis. This likely represents pneumonia. 2. The inferior right lobe of the liver appears enlarged as compared to the prior study. This has lobular contours. Contrast enhanced CT as well as hepatic protocol MRI could be considered for further evaluation. 3. Status post cholecystectomy. 4. Contrast excretion from both kidneys due to prior contrast administration. 5. Nonobstructive colonic herniation at the left lateral abdominal wall. This appears chronic. The segment of colonic herniation has increased since the prior study. 6. Diverticulosis without diverticulitis. 7. Postoperative fusion of the lower lumbar spine. Severe degenerative disc disease of the lower thoracic and lumbar spine. Review Statement Review Statement: I have independently reviewed and interpreted the labs/EKGs/imaging that were ordered by the ER provider. I have reviewed all outside records that are available currently in our EMR including imaging/notes/labs from previous visits. Plan Plan: 1. Extensive right sided pneumonia with possible mucus plugging - Procal 19. Bands noted on cbc. Zosyn + vanc. Solmedrol 40 q8hrs. Trend procal. Duonebs. RT consult. Pt wears 3L at baseline. 2. Acute hypotension requiring neosynephrine - Resolved, has been off pressor support since 929 on 04/03. Holding antihypertensives at this time. 3. CHF, unknown type - BNP elevated. Pt received 60 lasix IV in ER. Will hold off for now. Echo ordered. 4. Acute COPD Exacerbation with chronic respiratory failure - Plan as above 5. Chronic anticoagulation - Eliquis. Pt unsure of why she takes this. Will review [place] records 6. Hypertension - Hold antihypertensives. 7. Hyperlipidemia - Cont home meds 8. Anxiety/depression - Cont home meds DVT Prophylaxis: Eliquis Time Spent: Greater than 80 minutes spent with patient, 50% of the time spent with this patient was devoted to counseling and coordination of care. [facility] minutes spent discussing advance care planning. FULL CODE Admit to: Inpatient Discussed Plan of Care with Dr. Marlen Carreon. Medications Medication Orders: Medications Ordered Category Date Time Status 0.9 % Sodium Chloride [Saline Flush] Meds 04/03/23 21:00 Ordered 1 syr IVF Q8HR Acetaminophen [Tylenol] Meds 04/03/23 17:56 Active 650 mg PO Q4H PRN Apixaban [Eliquis] Meds 04/03/23 21:00 Ordered 2.5 mg PO BID Aspirin [Aspirin EC] Meds 04/04/23 08:30 Ordered 81 mg PO DAILYWM Ipratropium/Albuterol Neb [Duoneb] Meds 04/03/23 18:00 Active 3 ml NEB RTQ6H Loratadine [Claritin] Meds 04/03/23 19:30 Ordered 10 mg PO QDAY Lorazepam [Ativan] Meds 04/03/23 19:30 Ordered 0.25 mg PO QDAY Methylprednisolone Sod Succ/Pf [Solu-Medrol 40 mg] Meds 04/03/23 21:00 Active 40 mg IVP Q8HR Phenylephrine Inj [Phenylephrine] 10,000 mcg Meds 04/03/23 02:30 Active 0.9 % Sodium Chloride [Sodium Chloride] 250 ml IV TITRATION Piperacillin Sodium/Tazobactam [Zosyn 4.5 gm] 4.5 gm Meds 04/03/23 21:00 Active 0.9 % Sodium Chloride [Sodium Chloride 100Ml] 100 ml IV Q6HR Sertraline HCl [Zoloft] Meds 04/04/23 09:00 Ordered 100 mg PO DAILY Simvastatin [Zocor] Meds 04/03/23 21:00 Ordered 10 mg PO BEDTIME Tramadol HCl [Ultram] Meds 04/03/23 19:11 Ordered 50 mg PO Q8H PRN Vancomycin/Water For Inj (Peg) [Vancomycin 1 Gram/200 Meds 04/04/23 17:00 Active ml Premix] 1 gm in 200 ml IV Q24H buspirone Meds 04/03/23 21:00 Ordered 7.5 mg PO TID [id number] [Trelegy Ellipta] Meds 04/03/23 19:15 Ordered 1 inh IH QDAY ramelteon Meds 04/03/23 21:00 Ordered 8 mg PO BEDTIME
[2023-04-03] MEDS ORDERED: NON-FORMULARY MEDICATION (Ramelteon 8 mg tablet) PO SCH (21:00)
[2023-04-03] MEDS: ZOSYN 4.5 GM 4.5 GM in SODIUM CHLORIDE 100ML 100 ML IV SCH ×2 (21:02→23:25)
[2023-04-03] MEDS: ATIVAN PO SCH (21:29)
[2023-04-03] MEDS: ELIQUIS PO SCH (21:30)
[2023-04-03] MEDS: ZOCOR PO SCH (21:31)
[2023-04-03] MEDS: BUSPAR PO SCH (21:31)
[2023-04-03] MEDS: RESTORIL PO SCH (21:31)
[2023-04-03] MEDS: SYMBICORT 160-4.5 MCG INHALER IH SCH (21:32)
[2023-04-03] MEDS: SOLU-MEDROL 40 MG IVP SCH (21:52)
[2023-04-04] MEDS: SODIUM CHLORIDE IV SCH (04:18)
[2023-04-04] MEDS: PHENYLEPHRINE IV SCH (04:18)
[2023-04-04] MEDS: SOLU-MEDROL 40 MG IVP SCH ×3 (05:01→20:24)
[2023-04-04] MEDS: ZOSYN 4.5 GM 4.5 GM in SODIUM CHLORIDE 100ML 100 ML IV SCH ×4 (05:16→23:35)
[2023-04-04 05:42] LABS: BASOPHILS % (AUTO) 0.2 % (0.0-3.0); HEMATOCRIT 31.3 % (37.0-47.0); HEMOGLOBIN 9.5 g/dl (12.0-16.0); IMMATURE GRANULOCYTE % (AUTO) 0.2 % (0.0-5.0); LYMPHOCYTES # (AUTO) 0.1 K/uL (0.60-3.4); LYMPHOCYTES % (AUTO) 1.9 (10.0-50.0); MEAN CORPUSCULAR HEMOGLOBIN 29.1 pg (27.0-31.0); MEAN CORPUSCULAR HGB CONC 30.4 (31.8-35.4); MEAN CORPUSCULAR VOLUME 95.7 fl (81.0-99.0); MONOCYTES # (AUTO) 0.2 K/uL (0.4-2.0); MONOCYTES % (AUTO) 4.3 (0-10); NEUTROPHILS # (AUTO) 4.4 K/ul (2.0-6.9); NEUTROPHILS % (AUTO) 93.4 % (42.2-75.2); PLATELET COUNT 192 10^3/uL (140-440); RDW COEFFICIENT OF VARIATION 15.8 % (11.6-14.8); RED BLOOD COUNT 3.27 10^6/ul (4.20-5.40); WHITE BLOOD COUNT 4.66 K/ul (4.6-10.2)
[2023-04-04 05:49] LABS: ALANINE AMINOTRANSFERASE 27.6 U/L (0-35); ALBUMIN 3.48 g/dL (3.5-5.0); ALKALINE PHOSPHATASE 113.6 U/L (53-141); ASPARTATE AMINO TRANSFERASE 24.2 U/L (14-36); BILIRUBIN,TOTAL 0.53 mg/dL (0.2-1.3); BLOOD UREA NITROGEN 51.1 mg/dL (7-17); CALCIUM 8.64 mg/dL (8.4-10.2); CARBON DIOXIDE 31.9 mmol/L (22-30.0); CHLORIDE 100.2 mmol/L (98-107); CREATININE 1.05 mg/dL (0.60-1.30); GLUCOSE 201.8 mg/dL (74-106); SODIUM 136.7 mmol/L (134.5-145); TOTAL PROTEIN 7.12 g/dL (6.3-8.2)
[2023-04-04] MEDS: DUONEB NEB SCH ×4 (05:49→23:11)
[2023-04-04] MEDS: ASPIRIN EC PO SCH (08:48)
[2023-04-04] MEDS: CLARITIN PO SCH (08:49)
[2023-04-04] MEDS: ZOLOFT PO SCH (08:49)
[2023-04-04] MEDS: BUSPAR PO SCH ×3 (08:49→20:52)
[2023-04-04] MEDS: ATIVAN PO SCH (08:49)
[2023-04-04] MEDS: ELIQUIS PO SCH ×2 (08:50→20:53)
[2023-04-04] MEDS: VANCOMYCIN 1.25 GM/250 ML BAG 1.25 GM/250 ML BAG IV SCH (09:18)
[2023-04-04] MEDS: SPIRIVA IH SCH (09:18)
[2023-04-04] MEDS: SYMBICORT 160-4.5 MCG INHALER IH SCH ×2 (09:18→20:53)
--- NOTE | 2023-04-04 09:34 | PCM.PROG ---
Date/Time Seen Date Seen by Provider: 04/04/23 Time Seen by Provider: 08:30 Provider [facility] Chief Complaint Chief Complaint: BILATERAL PNEUMONIA,CHF Subjective Subjective: Patient feeling better today. States she had covid a couple weeks ago. Son and granddaughter at bedside. Son states patient is in process of getting set up to go to [facility]. Also she wears a cpap at night. Family unsure why she's on a blood thinner. Objective Appearance: Positive No Apparent Distress and Alert and Oriented x3 Chest/Lungs: Positive Symmetrical With Equal Breath Sounds and Wheezes (mild exp wheezing, better air movement today ); Negative Rhonci Heart: Positive RRR GI/: Positive Soft, Nontender, Bowel Sounds Normal and No Distention Neurological: Positive Alert, Oriented and Other (+generalized weakness ) Vital Signs Vital Signs: Vital Signs: Last 24 Hours 04/03/23 12:40 04/03/23 14:01 04/03/23 18:10 Temperature 98.1 F Temperature Source Temporal Artery Scan Pulse Rate 76 85 Respiratory Rate 19 20 18 Blood Pressure 113/51 L Blood Pressure Mean Blood Pressure Left Arm Blood Pressure Location Blood Pressure Position O2 Sat by Pulse Oximetry 97 95 Oxygen Delivery Method Nasal Cannula Oxygen Flow Rate 3 3 Height Weight Telemetry Type Telemetry Monitoring Telemetry Heart Rate Telemetry SPO2 EKG FL Interval EKG QRS Interval Telemetry Strip Reading 04/03/23 18:10 04/03/23 18:10 04/03/23 19:00 Temperature 97.9 F Temperature Source Oral Pulse Rate 83 Respiratory Rate 16 Blood Pressure Blood Pressure Mean Blood Pressure Left Arm 97/59 Blood Pressure Location Blood Pressure Position Supine O2 Sat by Pulse Oximetry 94 L Oxygen Delivery Method Nasal Cannula Nasal Cannula Oxygen Flow Rate 3 3 Height 5 ft 7 in Weight 183 lb 11.2 oz Telemetry Type Remote Telemetry Telemetry Monitoring Continues Telemetry Heart Rate 83 Telemetry SPO2 95 EKG FL Interval 0.15 EKG QRS Interval 0.09 Telemetry Strip Reading SR 04/03/23 19:53 04/03/23 19:56 04/03/23 21:39 Temperature 97.6 F Temperature Source Temporal Artery Scan Pulse Rate 93 Respiratory Rate 20 Blood Pressure 142/75 H Blood Pressure Mean 97 Blood Pressure Left Arm Blood Pressure Location Left Arm Blood Pressure Position Sitting O2 Sat by Pulse Oximetry 91 L Oxygen Delivery Method Nasal Cannula Nasal Cannula Nasal Cannula Oxygen Flow Rate 3 3 3 Height Weight Telemetry Type Telemetry Monitoring Telemetry Heart Rate Telemetry SPO2 EKG FL Interval EKG QRS Interval Telemetry Strip Reading 04/04/23 01:00 04/04/23 02:00 04/04/23 05:12 Temperature 97.4 F L Temperature Source Oral Pulse Rate 85 Respiratory Rate 20 Blood Pressure 142/84 H Blood Pressure Mean 103 Blood Pressure Left Arm Blood Pressure Location Right Arm Blood Pressure Position Supine O2 Sat by Pulse Oximetry 92 L 96 Oxygen Delivery Method Nasal Cannula Nasal Cannula Oxygen Flow Rate 3 3 Height Weight Telemetry Type Remote Telemetry Telemetry Monitoring Continues Telemetry Heart Rate 77 Telemetry SPO2 97 EKG FL Interval 0.16 EKG QRS Interval 0.08 Telemetry Strip Reading SR 04/04/23 05:18 04/04/23 07:00 04/04/23 09:29 Temperature 97.3 F L Temperature Source Temporal Artery Scan Pulse Rate 72 Respiratory Rate 20 Blood Pressure 123/68 Blood Pressure Mean 86 Blood Pressure Left Arm Blood Pressure Location Right Arm Blood Pressure Position Supine O2 Sat by Pulse Oximetry 94 L 95 Oxygen Delivery Method Nasal Cannula Nasal Cannula Oxygen Flow Rate 3 3 Height Weight Telemetry Type Remote Telemetry Telemetry Monitoring Continues Telemetry Heart Rate 71 Telemetry SPO2 92 L EKG FL Interval 0.20 EKG QRS Interval 0.08 Telemetry Strip Reading sr Lab Results Lab Results: Lab Results: Last 24 Hours 04/04/23 04/03/23 04/03/23 05:17 15:45 15:00 WBC 4.66 D RBC 3.27 L Hgb 9.5 L Hct 31.3 L MCV 95.7 MCH 29.1 MCHC 30.4 L RDW Coeff of Kathrin 15.8 H Plt Count 192 D Immature Gran % (Auto) 0.2 Neut % (Auto) 93.4 H Lymph % (Auto) 1.9 L [place] % (Auto) 4.3 Eos % (Auto) 0.0 Baso % (Auto) 0.2 Neut # (Auto) 4.4 Lymph # (Auto) 0.1 L [place] # (Auto) 0.2 L Eos # (Auto) 0.0 Baso # (Auto) 0.0 Immature Gran # (Auto) 0.0 Puncture Site [employer] Excess 11.1 H O2 Saturation 90.2 L ABG pH 7.37 ABG pCO2 63.0 H ABG pO2 61.0 L ABG HCO3 36.4 H ABG Total CO2 38.3 H Kip Test Pos Hemoglobin 0.8 Oxyhemoglobin 90.9 L Carboxyhemoglobin 2.3 H Total Hemoglobin 10.6 L O2 Delivery Device Cannula Oxygen Liter Flow 3.00 Sodium 136.7 Potassium 4.00 Chloride 100.2 Carbon Dioxide 31.9 H Anion Gap 8.60 BUN 51.1 H Creatinine 1.05 Estimated GFR (MDRD) 50.00 BUN/Creatinine Ratio 48.66 Glucose 201.8 H Lactic Acid 1.39 Calcium 8.64 Total Bilirubin 0.53 AST 24.2 ALT 27.6 Alkaline Phosphatase 113.6 D Total Protein 7.12 Albumin 3.48 L Globulin 3.64 Albumin/Globulin Ratio 0.95 Procalcitonin 13.56 H 19.54 H Additional Comments Additional Comments: I have independently reviewed and interpreted the labs/EKGs/imaging ordered during this hospital stay. I have reviewed outside records that are available in our EMR that pertain to medical stay including imaging/notes/labs from previous visits. Active Medications Active Medications: Medications Generic Name Dose Route Start Last Admin Trade Name Freq PRN Reason Stop Dose Admin Acetaminophen 650 mg 04/03/23 17:56 Acetaminophen 325 Mg Tablet PO Q4H PRN Mild Pain Albuterol/Ipratropium 3 ml 04/03/23 18:00 04/04/23 05:49 Ipratropium/Albuterol Vial.Neb NEB 3 ml RTQ6H ANNALISE Administration Apixaban 2.5 mg 04/03/23 21:00 04/04/23 08:50 Apixaban 5 Mg Tab PO 2.5 mg BID ANNALISE Administration Aspirin 81 mg 04/04/23 07:30 04/04/23 08:48 Aspirin 81 Mg Tablet. PO 81 mg DAILYWM2 ANNALISE Administration Budesonide/Formoterol Fumarate 2 puff 04/03/23 22:30 04/04/23 09:18 Budesonide/Formoterol Fumarate 160/4.5 Mcg Inhaler IH 2 puff BID ANNALISE Administration Buspirone HCl 7.5 mg 04/03/23 22:30 04/04/23 08:49 Buspirone Hcl 10 Mg Tablet PO 7.5 mg TID ANNALISE Administration Phenylephrine HCl 10,000 mcg/ 251 mls @ 63.553 mls/hr 04/03/23 02:30 04/04/23 04:18 Sodium Chloride IV Not Given TITRATION ANNALISE Protocol 0.5 MCG/KG/MIN Piperacillin Sod/Tazobactam 100 mls @ 200 mls/hr 04/03/23 21:00 04/04/23 05:16 Sod 4.5 gm/ Sodium Chloride IV 04/06/23 20:59 200 mls/hr Q6HR ANNALISE Administration VANCOMYCIN/WATER FOR INJ (PEG) 1.25 gm in 250 mls @ 250 mls/hr 04/04/23 09:00 04/04/23 09:18 Vancomycin 1.25 Gm/250 Ml Bag IV 04/07/23 08:59 250 mls/hr DAILY ANNALISE Administration Loratadine 10 mg 04/04/23 09:00 04/04/23 08:49 Loratadine 10 Mg Tablet PO 10 mg DAILY ANNALISE Administration Lorazepam 0.25 mg 04/03/23 19:30 04/04/23 08:49 Lorazepam 0.5 Mg Tablet PO 0.25 mg DAILY ANNALISE Administration Methylprednisolone Sodium Succinate 40 mg 04/03/23 21:00 04/04/23 05:01 Methylprednisolone Sod Succ/Pf 40 Mg/Ml Vial IVP 40 mg Q8HR ANNALISE Administration Sertraline HCl 100 mg 04/04/23 09:00 04/04/23 08:49 Sertraline Hcl 50 Mg Tablet PO 100 mg DAILY ANNALISE Administration Simvastatin 10 mg 04/03/23 21:00 04/03/23 21:31 Simvastatin 10 Mg Tablet PO 10 mg BEDTIME ANNALISE Administration Sodium Chloride 1 syr 04/03/23 21:00 04/04/23 05:01 0.9% Sodium Chloride 10 Ml Disp.Syrin IVF 1 syr Q8HR ANNALISE Administration Temazepam 30 mg 04/03/23 22:30 04/03/23 21:31 Temazepam 15 Mg Capsule PO 30 mg BEDTIME ANNALISE Administration Tiotropium [place] 1 cap 04/04/23 09:00 04/04/23 09:18 Tiotropium [place] 18 Mcg Cap.W.Dev IH 1 cap DAILY ANNALISE Administration Tramadol HCl 50 mg 04/03/23 19:11 Tramadol Hcl 50 Mg Tablet PO Q8H PRN MODERATE PAIN Plan Plan: 1. Extensive right sided pneumonia with possible mucus plugging - Procal improved. Cont Zosyn + vanc. Solmedrol 40 q8hrs. Trend procal. Duonebs. RT consult. Pt wears 3L at baseline. 2. Acute hypotension requiring neosynephrine - Resolved, has been off pressor support since 929 on 04/03. Holding antihypertensives at this time. 3. CHF, unknown type - BNP elevated. Pt received 60 lasix IV in ER. Will hold off for now. Echo ordered. 4. Acute COPD Exacerbation with chronic respiratory failure - Plan as above 5. Chronic anticoagulation - Eliquis. Pt unsure of why she takes this. Will review [facility] records 6. Hypertension - Hold antihypertensives. 7. Hyperlipidemia - Cont home meds 8. Anxiety/depression - Cont home meds 9. AJ - Wear cpap at night. 10. Recent covid 19 - Positive 03/19, out of window for isolation. Likely contributed to getting bacterial pna. DVT Prophylaxis: Jacqueline Review Statement Review Statement: I have personally discussed and reviewed the patient's visit/currently labs/imaging/decision making with Dr. Carreon, my supervising attending. Greater that 50 minutes spent with patient, 50% of the time spent with this patient was devoted to counseling and coordination of care.
[2023-04-04] MEDS ORDERED: DIFLUCAN PO ONE (12:14)
[2023-04-04] MEDS ORDERED: VANCOMYCIN 1 GRAM/200 ML PREMIX 1 GM/200 ML BAG IV SCH (17:00)
[2023-04-04] MEDS: ZOCOR PO SCH (20:52)
[2023-04-04] MEDS: RESTORIL PO SCH (20:52)
[2023-04-05] MEDS: DUONEB NEB SCH ×4 (05:10→23:04)
[2023-04-05] MEDS: SOLU-MEDROL 40 MG IVP SCH ×3 (05:14→20:01)
[2023-04-05] MEDS: ZOSYN 4.5 GM 4.5 GM in SODIUM CHLORIDE 100ML 100 ML IV SCH ×4 (05:24→23:25)
[2023-04-05] MEDS: SODIUM CHLORIDE IV SCH (05:25)
[2023-04-05] MEDS: PHENYLEPHRINE IV SCH (05:25)
[2023-04-05 08:35] LABS: BASOPHILS % (AUTO) 0.1 % (0.0-3.0); HEMATOCRIT 34.1 % (37.0-47.0); HEMOGLOBIN 10.3 g/dl (12.0-16.0); IMMATURE GRANULOCYTE # (AUTO) 0.2 (0.0-1.0); IMMATURE GRANULOCYTE % (AUTO) 3.3 % (0.0-5.0); LYMPHOCYTES # (AUTO) 0.2 K/uL (0.60-3.4); MEAN CORPUSCULAR HEMOGLOBIN 28.5 pg (27.0-31.0); MEAN CORPUSCULAR HGB CONC 30.2 (31.8-35.4); MEAN CORPUSCULAR VOLUME 94.5 fl (81.0-99.0); MONOCYTES # (AUTO) 0.4 K/uL (0.4-2.0); MONOCYTES % (AUTO) 6.3 (0-10); NEUTROPHILS # (AUTO) 6.1 K/ul (2.0-6.9); NEUTROPHILS % (AUTO) 87.3 % (42.2-75.2); RDW COEFFICIENT OF VARIATION 15.9 % (11.6-14.8); RED BLOOD COUNT 3.61 10^6/ul (4.20-5.40); WHITE BLOOD COUNT 6.98 K/ul (4.6-10.2)
[2023-04-05] MEDS: SYMBICORT 160-4.5 MCG INHALER IH SCH ×2 (08:47→20:24)
[2023-04-05] MEDS: ATIVAN PO SCH (08:48)
[2023-04-05 08:49] LABS: ALANINE AMINOTRANSFERASE 29.1 U/L (0-35); ALBUMIN 3.92 g/dL (3.5-5.0); ALKALINE PHOSPHATASE 123.7 U/L (53-141); ASPARTATE AMINO TRANSFERASE 35.3 U/L (14-36); BILIRUBIN,TOTAL 0.59 mg/dL (0.2-1.3); BLOOD UREA NITROGEN 46.4 mg/dL (7-17); CALCIUM 8.76 mg/dL (8.4-10.2); CARBON DIOXIDE 31.1 mmol/L (22-30.0); CHLORIDE 101.1 mmol/L (98-107); CREATININE 0.69 mg/dL (0.60-1.30); GLUCOSE 184.3 mg/dL (74-106); POTASSIUM 3.97 mmol/L (3.5-5.1); SODIUM 138.7 mmol/L (134.5-145); TOTAL PROTEIN 8.13 g/dL (6.3-8.2)
[2023-04-05] MEDS: ASPIRIN EC PO SCH (08:49)
[2023-04-05] MEDS: CLARITIN PO SCH (08:49)
[2023-04-05] MEDS: ZOLOFT PO SCH (08:50)
[2023-04-05] MEDS: SPIRIVA IH SCH (08:53)
[2023-04-05] MEDS: BUSPAR PO SCH ×3 (08:54→20:26)
[2023-04-05] MEDS: ELIQUIS PO SCH ×2 (08:56→20:26)
[2023-04-05] MEDS: VANCOMYCIN 1.25 GM/250 ML BAG 1.25 GM/250 ML BAG IV SCH (09:05)
[2023-04-05 09:09] LABS: PLATELET COUNT 290 10^3/uL (140-440)
--- NOTE | 2023-04-05 09:34 | PCM.PROG ---
Date/Time Seen Date Seen by Provider: 04/05/23 Time Seen by Provider: 09:00 Provider Provider: TERRANCE TEJEDA, [facility] Chief Complaint Chief Complaint: BILATERAL PNEUMONIA,CHF Subjective Subjective: Feeling much better today. States breathing feels more at baseline. Hopes to go home in the near future. Objective Appearance: Positive No Apparent Distress and Alert and Oriented x3 Chest/Lungs: Positive Symmetrical With Equal Breath Sounds, Rhonci (RLL), Wheezes (expiratory, bilateral lower lobes) and Good Air Movement all 4 Lung Garcia Heart: Positive RRR and Pulses Normal GI/: Positive Soft and Nontender Musculoskeletal: Positive Not Examined Neurological: Positive Sensation Intact, Motor intact, Reflexes Intact, Alert, Oriented and Muscle Strength 5/5 in Upper and Lower Extremities Bilaterally Vital Signs Vital Signs: Vital Signs: Last 24 Hours 04/04/23 10:00 04/04/23 13:00 04/04/23 13:41 Temperature 97.9 F Temperature Source Temporal Artery Scan Pulse Rate 83 Respiratory Rate 20 Blood Pressure 134/77 Blood Pressure Mean 96 Blood Pressure Location Left Arm Blood Pressure Position Sitting O2 Sat by Pulse Oximetry 96 98 Oxygen Delivery Method Nasal Cannula Nasal Cannula Oxygen Flow Rate 3 3 Telemetry Type Remote Telemetry Telemetry Monitoring Continues Telemetry Heart Rate 87 Telemetry SPO2 97 EKG VT Interval 0.14 EKG QRS Interval 0.12 H Telemetry Strip Reading SR w/ BBB 04/04/23 14:00 04/04/23 18:00 04/04/23 18:50 Temperature 98.8 F 98.4 F Temperature Source Temporal Artery Scan Temporal Artery Scan Pulse Rate 88 93 Respiratory Rate 21 H 17 Blood Pressure 138/73 120/67 Blood Pressure Mean 94 84 Blood Pressure Location Right Arm Left Arm Blood Pressure Position Sitting Sitting O2 Sat by Pulse Oximetry 95 98 Oxygen Delivery Method Nasal Cannula Nasal Cannula Oxygen Flow Rate 3 3 Telemetry Type Remote Telemetry Telemetry Monitoring Continues Telemetry Heart Rate 90 Telemetry SPO2 99 EKG VT Interval 0.18 EKG QRS Interval 0.09 Telemetry Strip Reading SR 04/04/23 19:59 04/04/23 20:00 04/04/23 21:02 Temperature 98.1 F Temperature Source Oral Pulse Rate 80 Respiratory Rate 20 20 Blood Pressure 153/82 H Blood Pressure Mean 105 Blood Pressure Location Left Arm Blood Pressure Position Supine O2 Sat by Pulse Oximetry 97 97 Oxygen Delivery Method Nasal Cannula Nasal Cannula Nasal Cannula Oxygen Flow Rate 3 3 3 Telemetry Type Telemetry Monitoring Telemetry Heart Rate Telemetry SPO2 EKG VT Interval EKG QRS Interval Telemetry Strip Reading 04/05/23 00:57 04/05/23 05:16 04/05/23 05:17 Temperature 97.0 F L Temperature Source Temporal Artery Scan Pulse Rate 82 Respiratory Rate 20 Blood Pressure 170/86 H Blood Pressure Mean 114 Blood Pressure Location Left Arm Blood Pressure Position Supine O2 Sat by Pulse Oximetry 96 100 Oxygen Delivery Method Nasal Cannula Nebulizer Treatment Oxygen Flow Rate 3 3 Telemetry Type Remote Telemetry Telemetry Monitoring Continues Telemetry Heart Rate 82 Telemetry SPO2 93 EKG VT Interval 0.17 EKG QRS Interval 0.08 Telemetry Strip Reading SR Lab Results Lab Results: Lab Results: Last 24 Hours 04/05/23 08:26 WBC 6.98 RBC 3.61 L Hgb 10.3 L Hct 34.1 L MCV 94.5 MCH 28.5 MCHC 30.2 L RDW Coeff of Kathrin 15.9 H Plt Count 290 D Immature Gran % (Auto) 3.3 Neut % (Auto) 87.3 H Lymph % (Auto) 3.0 L [place] % (Auto) 6.3 Eos % (Auto) 0.0 Baso % (Auto) 0.1 Neut # (Auto) 6.1 Lymph # (Auto) 0.2 L [place] # (Auto) 0.4 Eos # (Auto) 0.0 Baso # (Auto) 0.0 Immature Gran # (Auto) 0.2 Sodium 138.7 Potassium 3.97 Chloride 101.1 Carbon Dioxide 31.1 H Anion Gap 10.47 BUN 46.4 H Creatinine 0.69 Estimated GFR (MDRD) 81.00 BUN/Creatinine Ratio 67.24 Glucose 184.3 H Calcium 8.76 Total Bilirubin 0.59 AST 35.3 ALT 29.1 Alkaline Phosphatase 123.7 Total Protein 8.13 Albumin 3.92 Globulin 4.21 Albumin/Globulin Ratio 0.93 Procalcitonin 6.49 H Vancomycin Trough 7.733 L Additional Comments Additional Comments: I have independently reviewed and interpreted the labs/EKGs/imaging ordered during this hospital stay. I have reviewed outside records that are available in our EMR that pertain to medical stay including imaging/notes/labs from previous visits. Active Medications Active Medications: Medications Generic Name Dose Route Start Last Admin Trade Name Freq PRN Reason Stop Dose Admin Acetaminophen 650 mg 04/03/23 17:56 Acetaminophen 325 Mg Tablet PO Q4H PRN Mild Pain Albuterol/Ipratropium 3 ml 04/03/23 18:00 04/05/23 05:10 Ipratropium/Albuterol Vial.Neb NEB 3 ml RTQ6H ANNALISE Administration Apixaban 2.5 mg 04/03/23 21:00 04/05/23 08:56 Apixaban 5 Mg Tab PO 2.5 mg BID ANNALISE Administration Aspirin 81 mg 04/04/23 07:30 04/05/23 08:49 Aspirin 81 Mg Tablet. PO 81 mg DAILYWM2 ANNALISE Administration Budesonide/Formoterol Fumarate 2 puff 04/03/23 22:30 04/05/23 08:47 Budesonide/Formoterol Fumarate 160/4.5 Mcg Inhaler IH 2 puff BID ANNALISE Administration Buspirone HCl 7.5 mg 04/03/23 22:30 04/05/23 08:54 Buspirone Hcl 10 Mg Tablet PO 7.5 mg TID ANNALISE Administration Phenylephrine HCl 10,000 mcg/ 251 mls @ 63.553 mls/hr 04/03/23 02:30 04/05/23 05:25 Sodium Chloride IV Not Given TITRATION ANNALISE Protocol 0.5 MCG/KG/MIN Piperacillin Sod/Tazobactam 100 mls @ 200 mls/hr 04/03/23 21:00 04/05/23 05:24 Sod 4.5 gm/ Sodium Chloride IV 04/06/23 20:59 200 mls/hr Q6HR ANNALISE Administration VANCOMYCIN/WATER FOR INJ (PEG) 1.25 gm in 250 mls @ 250 mls/hr 04/04/23 09:00 04/05/23 09:05 Vancomycin 1.25 Gm/250 Ml Bag IV 04/07/23 08:59 250 mls/hr DAILY ANNALISE Administration Loratadine 10 mg 04/04/23 09:00 04/05/23 08:49 Loratadine 10 Mg Tablet PO 10 mg DAILY ANNALISE Administration Lorazepam 0.25 mg 04/03/23 19:30 04/05/23 08:48 Lorazepam 0.5 Mg Tablet PO 0.25 mg DAILY ANNALISE Administration Methylprednisolone Sodium Succinate 40 mg 04/03/23 21:00 04/05/23 05:14 Methylprednisolone Sod Succ/Pf 40 Mg/Ml Vial IVP 40 mg Q8HR ANNALISE Administration Sertraline HCl 100 mg 04/04/23 09:00 04/05/23 08:50 Sertraline Hcl 50 Mg Tablet PO 100 mg DAILY ANNALISE Administration Simvastatin 10 mg 04/03/23 21:00 04/04/23 20:52 Simvastatin 10 Mg Tablet PO 10 mg BEDTIME ANNALISE Administration Sodium Chloride 1 syr 04/03/23 21:00 04/05/23 05:14 0.9% Sodium Chloride 10 Ml Disp.Syrin IVF 1 syr Q8HR ANNALISE Administration Temazepam 30 mg 04/03/23 22:30 04/04/23 20:52 Temazepam 15 Mg Capsule PO 30 mg BEDTIME ANNALISE Administration Tiotropium [place] 1 cap 04/04/23 09:00 04/05/23 08:53 Tiotropium [place] 18 Mcg Cap.W.Dev IH 1 cap DAILY ANNALISE Administration Tramadol HCl 50 mg 04/03/23 19:11 Tramadol Hcl 50 Mg Tablet PO Q8H PRN MODERATE PAIN Plan Plan: 1. Extensive right sided pneumonia with possible mucus plugging - Improving, Procal improved. Cont Zosyn + vanc. Solmedrol 40 q8hrs. Trend procal. Duonebs. RT consult. Pt wears 3L at baseline. 2. Acute hypotension requiring neosynephrine - Resolved, has been off pressor support since 929 on 04/03. Holding antihypertensives at this time. 3. CHF, unknown type - BNP elevated. Pt received 60 lasix IV in ER. Will hold off for now. Echo ordered. 4. Acute COPD Exacerbation with chronic respiratory failure - Plan as above 5. Chronic anticoagulation - Eliquis. Pt unsure of why she takes this. Will review [facility] records 6. Hypertension - Hold antihypertensives. 7. Hyperlipidemia - Cont home meds 8. Anxiety/depression - Cont home meds 9. AJ - Wear cpap at night. 10. Recent covid 19 - Positive 03/19, out of window for isolation. Likely contributed to getting bacterial pna. DVT Prophylaxis: Eliquis Dispo: D/c tomorrow Review Statement Review Statement: I have personally discussed and reviewed the patient's visit/currently labs/imaging/decision making with Dr. Carreon, my supervising attending. Greater that 50 minutes spent with patient, 50% of the time spent with this patient was devoted to counseling and coordination of care.
[2023-04-05 10:42] LABS: IRON 36.7 ug/dL (37-170)
[2023-04-05] MEDS: HYZAAR 50-12.5 MG TAB PO SCH (11:36)
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
[2023-04-05] MEDS: RESTORIL PO SCH (20:25)
[2023-04-05] MEDS: ZOCOR PO SCH (20:26)
[2023-04-06] MEDS: DUONEB NEB SCH ×2 (05:02→11:24)
[2023-04-06] MEDS: ZOSYN 4.5 GM 4.5 GM in SODIUM CHLORIDE 100ML 100 ML IV SCH ×2 (05:12→12:12)
[2023-04-06 05:25] LABS: BASOPHILS % (AUTO) 0.8 % (0.0-3.0); HEMATOCRIT 32.6 % (37.0-47.0); HEMOGLOBIN 9.8 g/dl (12.0-16.0); IMMATURE GRANULOCYTE # (AUTO) 0.5 (0.0-1.0); IMMATURE GRANULOCYTE % (AUTO) 9.6 % (0.0-5.0); LYMPHOCYTES # (AUTO) 0.4 K/uL (0.60-3.4); LYMPHOCYTES % (AUTO) 6.9 (10.0-50.0); MEAN CORPUSCULAR HEMOGLOBIN 28.4 pg (27.0-31.0); MEAN CORPUSCULAR HGB CONC 30.1 (31.8-35.4); MEAN CORPUSCULAR VOLUME 94.5 fl (81.0-99.0); MONOCYTES # (AUTO) 0.7 K/uL (0.4-2.0); MONOCYTES % (AUTO) 12.5 (0-10); NEUTROPHILS # (AUTO) 3.7 K/ul (2.0-6.9); NEUTROPHILS % (AUTO) 70.2 % (42.2-75.2); PLATELET COUNT 270 10^3/uL (140-440); RED BLOOD COUNT 3.45 10^6/ul (4.20-5.40); WHITE BLOOD COUNT 5.22 K/ul (4.6-10.2)
[2023-04-06] MEDS: SOLU-MEDROL 40 MG IVP SCH ×2 (05:37→12:13)
[2023-04-06 05:38] LABS: ALANINE AMINOTRANSFERASE 26.4 U/L (0-35); ALBUMIN 3.42 g/dL (3.5-5.0); ALKALINE PHOSPHATASE 122.8 U/L (53-141); ASPARTATE AMINO TRANSFERASE 27.8 U/L (14-36); BILIRUBIN,TOTAL 0.27 mg/dL (0.2-1.3); BLOOD UREA NITROGEN 36.9 mg/dL (7-17); CALCIUM 8.73 mg/dL (8.4-10.2); CARBON DIOXIDE 32.8 mmol/L (22-30.0); CHLORIDE 102.6 mmol/L (98-107); CREATININE 0.79 mg/dL (0.60-1.30); GLUCOSE 217.5 mg/dL (74-106); POTASSIUM 3.6 mmol/L (3.5-5.1); SODIUM 138.9 mmol/L (134.5-145); TOTAL PROTEIN 6.99 g/dL (6.3-8.2)
[2023-04-06] MEDS: SODIUM CHLORIDE IV SCH (07:00)
[2023-04-06] MEDS: PHENYLEPHRINE IV SCH (07:00)
[2023-04-06] MEDS: ASPIRIN EC PO SCH (07:49)
[2023-04-06] MEDS: CLARITIN PO SCH (09:07)
[2023-04-06] MEDS: VANCOMYCIN 1.25 GM/250 ML BAG 1.25 GM/250 ML BAG IV SCH (09:07)
[2023-04-06] MEDS: SPIRIVA IH SCH (09:08)
[2023-04-06] MEDS: ZOLOFT PO SCH (09:08)
[2023-04-06] MEDS: ATIVAN PO SCH (09:08)
[2023-04-06] MEDS: SYMBICORT 160-4.5 MCG INHALER IH SCH (09:08)
[2023-04-06] MEDS: HYZAAR 50-12.5 MG TAB PO SCH (09:09)
[2023-04-06] MEDS: BUSPAR PO SCH ×2 (09:10→14:05)
[2023-04-06] MEDS: ELIQUIS PO SCH (09:10)
--- NOTE | 2023-04-06 10:00 | DCSUM ---
Admission Date Admission Date: 04/03/23 Discharge Date Discharge Date: 04/06/23 Admission Diagnosis Admission Diagnosis: 1. Extensive right sided pneumonia with possible mucus plugging 2. Acute hypotension requiring neosynephrine 3. CHF, unknown type 4. Acute COPD Exacerbation with chronic respiratory failure 5. Chronic anticoagulation 6. Hypertension 7. Hyperlipidemia 8. Anxiety/depression Discharge Diagnosis Discharge Diagnosis: 1. Extensive right sided pneumonia with possible mucus plugging 2. Acute hypotension requiring neosynephrine 3. CHF, unknown type 4. Acute COPD Exacerbation with chronic respiratory failure 5. Chronic anticoagulation 6. Hypertension 7. Hyperlipidemia 8. Anxiety/depression 9. AJ 10. Recent covid 19 Hospital Provider Hospital Provider: TERRANCE TEJEDA, [facility] Primary Care Physician Primary Care Physician: BRENNON YORK Summary of History and Physical Summary of History and Physical: Patient is an 82 year old female from [facility] with pmhx of COPD, chronic anticoaguation, anxiety, hypertension, hyperlipidemia, CHF who presents to ER with sob. Patient had been diagnosed with bilateral pna via cxr at [facility] prior to arrival. She was started on antibiotics but only received one dose prior to arriving to ER. In ER she was found to have elevated bnp, was given lasix 60 mg IV. Her BP became low, she was given 500 cc of fluids. She still remained hypotensive and was eventually placed on neosynephrine. CT chest showed extensive right consolidation with concern for mucus plug. Liver enzymes mildly elevated as well. CT a/p showed enlarged liver. She was given zosyn. She was initially accepted at [facility], however could not find any transport. The patient remained in the ER most of the day and her pressor was shut off around 0930. Her BP remained stable throughout the day. She also did not want to be transferred and preferred to stay at this facility. She understands we do not have specialists or the means to perform a bronch if she were to need one. She still wishes to remain at this facility. She was admitted to med surg for further evaluation and treatment. Hospital Course Subjective: During stay, patient was treated for extensive right sided pneumonia with zosyn, vancomycin, steroids, and nebulizer treatments. She has remained on her home oxygen during stay. Concern for mucus plugging noted on CT. Patient has been able to produce secretions on her own during stay and has not been hypoxic. Hypotension resolved on 04/03. Antihypertensives were resumed yesterday 04/05. BNP was elevated on admission. She was given 60 mg IV lasix in ER. Clinically did not appear overloaded. Echo was completed yesterday and showed EF of 63%. Changed lasix from prn to daily and continued all other CHF medications. No other changes were made to home medications. Continue as previously prescribed. Appearance: Pleasant, No Apparent Distress and Alert HEENT: MMM and Supple CVS: No Murmur and No Rubs Abdomen: Soft and Non-Tender Respiratory: No Dyspnea Extremities: No Edema Vital Signs: Most Recent Vital Signs Temperature 98.6 F 04/06/23 05:50 Temperature Source Temporal Artery Scan 04/06/23 05:50 Temperature Source Temporal Artery Scan 04/03/23 14:01 Pulse Rate 94 04/06/23 05:50 Respiratory Rate 20 04/06/23 05:50 Blood Pressure 156/75 H 04/06/23 05:50 Blood Pressure Mean 102 04/06/23 05:50 Blood Pressure Left Arm 97/59 04/03/23 18:10 Blood Pressure Location Left Arm 04/06/23 05:50 Blood Pressure Position Supine 04/06/23 05:50 O2 Sat by Pulse Oximetry 93 L 04/06/23 05:50 Oxygen Delivery Method Nasal Cannula 04/06/23 05:50 Oxygen Flow Rate 3 04/06/23 05:50 Height 5 ft 7 in 04/03/23 18:10 Weight 183 lb 11.2 oz 04/03/23 18:10 Telemetry Type Remote Telemetry 04/06/23 07:00 Telemetry Monitoring Continues 04/06/23 07:00 Telemetry Heart Rate 80 04/06/23 07:00 Telemetry SPO2 97 04/06/23 07:00 EKG CA Interval 0.18 04/06/23 07:00 EKG QRS Interval 0.08 04/06/23 07:00 Telemetry Strip Reading NSR 04/06/23 07:00 Lab Results Last 24 Hours: 04/06/23 04/05/23 05:19 08:26 WBC 5.22 RBC 3.45 L Hgb 9.8 L Hct 32.6 L MCV 94.5 MCH 28.4 MCHC 30.1 L RDW Coeff of Kathrin 16.0 H Plt Count 270 Immature Gran % (Auto) 9.6 H Neut % (Auto) 70.2 Lymph % (Auto) 6.9 L Anson % (Auto) 12.5 H Eos % (Auto) 0.0 Baso % (Auto) 0.8 Neut # (Auto) 3.7 Lymph # (Auto) 0.4 L Anson # (Auto) 0.7 Eos # (Auto) 0.0 Baso # (Auto) 0.0 Immature Gran # (Auto) 0.5 Sodium 138.9 Potassium 3.60 Chloride 102.6 Carbon Dioxide 32.8 H Anion Gap 7.10 BUN 36.9 H Creatinine 0.79 Estimated GFR (MDRD) 70.00 BUN/Creatinine Ratio 46.70 Glucose 217.5 H Calcium 8.73 Iron 36.7 L TIBC 276 % Saturation 13 Ferritin 170.00 Total Bilirubin 0.27 AST 27.8 ALT 26.4 Alkaline Phosphatase 122.8 Total Protein 6.99 Albumin 3.42 L Globulin 3.57 Albumin/Globulin Ratio 0.95 Procalcitonin 3.52 H Discharge Instructions Discharge Planning: Discharge Planning > 40 minutes If patient is discharged with left ventricular systolic dysfunction: NA Discharged with a beta wm? [] If no, why not? [] Discharged with an arnulfo/arb? [] If no, why not? [] Regular diet Activity as tolerated Continue PT/OT Follow-up with PCP in 1 week New Medications: Augmentin 875 take 1 by mouth twice a day for 5 days Prednisone 10 mg take as directed until completed Discharge Medications: Medications at Discharge (Home Meds & RX) aspirin 81 mg tablet,delayed release 81 mg PO DAILYWM 01/27/15 simvastatin 20 mg tablet 10 mg PO BEDTIME 01/27/15 fluticasone fur. 100 mcg-umeclid 62.5 mcg-vilant 25 mcg inhalat.powder (Trelegy Ellipta) 1 inh inhalation QDAY 01/12/23 loratadine 10 mg capsule 10 mg PO QDAY 01/12/23 lorazepam 0.5 mg tablet (Ativan) 0.25 mg PO QDAY 01/12/23 acetaminophen 500 mg tablet (Pain Reliever Extra Strength (acetaminophen)) 500 mg PO Q6H PRN pain 04/02/23 albuterol sulfate 90 mcg/actuation aerosol inhaler 2 puff inhalation Q4H PRN shortness of breath or wheezing 04/02/23 apixaban 2.5 mg tablet (Eliquis) 2.5 mg PO BID 04/02/23 benzonatate 200 mg capsule 200 mg PO Q8H PRN cough 04/02/23 buspirone 7.5 mg tablet 7.5 mg PO TID 04/02/23 dextromethorphan-guaifenesin 10 mg-100 mg/5 mL oral liquid 5 ml PO Q8H PRN cough 04/02/23 diclofenac sodium 1 % topical gel 2 g topical ONCE 04/02/23 doxycycline hyclate 100 mg tablet 100 mg PO BID 04/02/23 fluticasone fur. 100 mcg-umeclid 62.5 mcg-vilant 25 mcg inhalat.powder (Trelegy Ellipta) 1 inh inhalation DAILY 04/02/23 ipratropium 0.5 mg-albuterol 3 mg (2.5 mg base)/3 mL nebulization soln 3 ml inhalation QID 04/02/23 lorazepam 0.5 mg tablet (Ativan) 0.5 mg PO DAILY 04/02/23 losartan 50 mg-hydrochlorothiazide 12.5 mg tablet 0.5 tab PO DAILY 04/02/23 melatonin 1 mg tablet 3 mg PO BEDTIME 04/02/23 polyethylene glycol 3350 17 gram/dose oral powder (Miralax) 17 g PO DAILY 04/02/23 prednisone 20 mg tablet 20 mg PO DAILY 04/02/23 ramelteon 8 mg tablet 8 mg PO BEDTIME 04/02/23 sertraline 100 mg tablet 100 mg PO DAILY 04/02/23 tramadol 50 mg tablet 50 mg PO Q8H PRN pain 04/02/23 vitamins A,C,M-zpqm-hwhzju 2,148 mcg-113 mg-45 mg-17.4 mg tablet (Eye Multivitamin) 1 tab PO BID 04/02/23 amoxicillin 875 mg-potassium clavulanate 125 mg tablet 1 tab PO Q12H #10 tabs 04/06/23 furosemide 40 mg tablet 40 mg PO DAILY #30 tabs 04/06/23 prednisone 10 mg tablet 10 mg PO DIRECTED #7 tabs 04/06/23 Discharge Plan Discharge Discharge Orders: Discharge Patient (ONCE); Ordered 04/06/23 Ordered By: LUI RICO Activity Restrictions/Additional Instructions: Regular diet Activity as tolerated Continue PT/OT Follow-up with PCP in 1 week New Medications: Augmentin 875 take 1 by mouth twice a day for 5 days Prednisone 10 mg take as directed until completed Instructions: Community Acquired Pneumonia (GEN) Patient Disposition: TRANSFER SNF Prescriptions: New amoxicillin-pot clavulanate 875-125 mg tablet 1 tab PO Q12H Qty: 10 0RF prednisone 10 mg tablet 10 mg PO DIRECTED Qty: 7 0RF Rx Instructions: see taper instructions Continued aspirin 81 MG tablet,delayed release (DR/EC) 81 mg PO DAILYWM simvastatin 20 MG tablet 10 mg PO BEDTIME lorazepam [Ativan] 0.5 mg tablet 0.5 mg PO DAILY losartan-hydrochlorothiazide 50-12.5 mg tablet 0.5 tab PO DAILY melatonin 1 mg tablet 3 mg PO BEDTIME polyethylene glycol 3350 [Miralax] 17 gram/dose powder 17 g PO DAILY prednisone 20 mg tablet 20 mg PO DAILY Rx Instructions: DAILY X 5 DAYS HAD FIRST DOSE TODAY AT 4PM ramelteon 8 mg tablet 8 mg PO BEDTIME Trelegy Ellipta 100-62.5-25 mcg blister with device 1 inh inhalation DAILY sertraline 100 mg tablet 100 mg PO DAILY doxycycline hyclate 100 mg tablet 100 mg PO BID Rx Instructions: BID X5 DAYS HAD FIRST 2 DOSES TODAY (04/02/23) Eliquis 2.5 mg tablet 2.5 mg PO BID Eye Multivitamin 2,148 mcg-113 mg-45 mg-17.4mg tablet 1 tab PO BID Rx Instructions: administer with AM and PM meals diclofenac sodium 1 % gel 2 g topical ONCE Rx Instructions: apply to single elbow, wrist or hand; for hand includes palm/fingers/back of hand buspirone 7.5 mg tablet 7.5 mg PO TID ipratropium-albuterol 0.5 mg-3 mg(2.5 mg base)/3 mL solution for nebulization 3 ml INHALATION QID albuterol sulfate 90 mcg/actuation HFA aerosol inhaler 2 puff INHALATION Q4H PRN (Reason: shortness of breath or wheezing) benzonatate 200 mg capsule 200 mg PO Q8H PRN (Reason: cough) dextromethorphan-guaifenesin 10-100 mg/5 mL liquid 5 ml PO Q8H PRN (Reason: cough) tramadol 50 mg tablet 50 mg PO Q8H PRN (Reason: pain) acetaminophen [Pain Reliever ES(acetaminophn)] 500 mg tablet 500 mg PO Q6H PRN (Reason: pain) lorazepam [Ativan] 0.5 mg tablet 0.25 mg PO QDAY Trelegy Ellipta 100-62.5-25 mcg blister with device 1 inh inhalation QDAY loratadine 10 mg capsule 10 mg PO QDAY Changed furosemide 40 mg tablet 40 mg PO DAILY Qty: 30 0RF Discontinued azithromycin 250 mg tablet 250 mg PO DAILY Rx Instructions: start on day 2 of therapy Did you review [place] RETAIL FIELD REPRESENTATIVE for ALL controlled substances?: No Discussed opioids are addictive and Narcan is available by prescription or from pharmacy.: No Condition: Fair
[2023-04-06 10:14] VITALS: BP 175/87; PULSE 85; RESP 28; TEMP 97
--- NOTE | 2023-04-06 13:06 | ECHO2D ---
Date of Exam: 04/05/2023 Ordering Physician: AMA SARAH NP- HOSPITALIST / Room #: 122 [facility] Reason for Echo: ELEVATED BNP, RESPIRATORY FAILURE, MODERATE CARDIOMEGALY, PNEUMONIA, EMPHYSEMA M-Mode Normal Adult Results LV Dimensions Normal Adult Results AoV Opening excursions >1.6 >1.6 LVEDD-base- 3.5-5.8 4.8 Ao root dimensions 2.0-3.7 3.2 LVESD-base- 3.1-4.6 L. Atrium dimensions 1.9-3.8 5.3 Post. Wall thickness 0.8-1.1 1.3 IV septum (thickness) 0.7-1.2 1.3 Post. Wall excursion 0.72-1.3 NORMAL Septal motion NORMAL Systolic motion R. Ventricular cavity 1.5-2.0 3.0 LVEF 60% 68% Paradoxical septal wall motion NORMAL 2-D :CALCIFIC MITRAL VALVE ANNULUS. CALCIFIC AORTIC VALVE LEAFLETS. NORMAL LEFT VENTRICLE SIZE AND CONTRACTILITY. NO EFFUSION, NO THROMBUS. ENLARGED LEFT ATRIAL AND RIGHT VENTRICLE SIZE. COLOR FLOW: MODERATE TRICUSPID REGURGITATION. MILD MITRAL REGURGITATION. M-MODE: MV: CALCIFIC MITRAL VALVE ANNULUS AV: CALCIFIC AORTIC VALVE LEAFLETS TV: NORMAL PV: NORMAL CHAMBER SIZE: ENLARGED LEFT ATRIAL AND RIGHT VENTRICLE SIZE WALL MOTION: NORMAL PERICARDIUM: NORMAL INTERPRETATION: 1. LEFT VENTRICULAR HYPERTROPHY WITH ENLARGED LEFT ATRIAL CAVITY. 2. 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 3. NORMAL LEFT VENTRICLE SIZE AND LEFT VENTRICULAR CONTRACTILITY. 4. MILD MITRAL REGURGITATION AND MODERATE TRICUSPID REGURGITATION. 5. ENLARGED RIGHT VENTRICLE CAVITY. MTDD
== END 2023-04-06 14:13 | DRG 193 ==
LOC: ED 22:32 → MEDSURG B 04-03 17:21
PROVIDERS: ADMIT Hospitalist; ATTEND Nurse Practitioner Family
DX: R94.5 Abnormal results of liver function studies; R16.0 Hepatomegaly, not elsewhere classified; Z20.822 Contact with and (suspected) exposure to COVID-19; Z86.16 Personal history of COVID-19; J44.9 Chronic obstructive pulmonary disease, unspecified; Z79.01 Long term (current) use of anticoagulants; J96.21 Acute and chronic respiratory failure with hypoxia; I95.9 Hypotension, unspecified; K57.30 Diverticulosis of large intestine without perforation or abscess without bleeding; I11.0 Hypertensive heart disease with heart failure; M62.81 Muscle weakness (generalized); I50.9 Heart failure, unspecified; J43.9 Emphysema, unspecified; F41.9 Anxiety disorder, unspecified; E78.5 Hyperlipidemia, unspecified; J44.1 Chronic obstructive pulmonary disease with (acute) exacerbation; J12.89 Other viral pneumonia

== ENCOUNTER 2024-06-26 15:48 | Observation (INO) ==
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
[2024-06-26 16:15] LABS: BASOPHILS % (AUTO) 0.3 % (0.0-3.0); EOSINOPHILS # (AUTO) 0.4 K/ul (0.0-0.7); EOSINOPHILS % (AUTO) 6.1 % (0.0-7.0); HEMATOCRIT 37.2 % (37.0-47.0); IMMATURE GRANULOCYTE % (AUTO) 0.5 % (0.0-5.0); LYMPHOCYTES # (AUTO) 0.5 K/uL (0.60-3.4); LYMPHOCYTES % (AUTO) 8.1 (10.0-50.0); MEAN CORPUSCULAR HEMOGLOBIN 28.9 pg (27.0-31.0); MEAN CORPUSCULAR HGB CONC 29.6 (31.8-35.4); MEAN CORPUSCULAR VOLUME 97.9 fl (81.0-99.0); MONOCYTES # (AUTO) 0.8 K/uL (0.4-2.0); MONOCYTES % (AUTO) 13.7 (0-10); NEUTROPHILS # (AUTO) 4.3 K/ul (2.0-6.9); NEUTROPHILS % (AUTO) 71.3 % (42.2-75.2); PLATELET COUNT 250 10^3/uL (140-440); RDW COEFFICIENT OF VARIATION 15.9 % (11.6-14.8); WHITE BLOOD COUNT 6.06 K/ul (4.6-10.2)
[2024-06-26 16:26] LABS: ALANINE AMINOTRANSFERASE 16.2 U/L (0-35); ALBUMIN 3.5 g/dL (3.5-5.0); ALKALINE PHOSPHATASE 77.2 U/L (53-141); ASPARTATE AMINO TRANSFERASE 29.1 U/L (14-36); BILIRUBIN,TOTAL 0.39 mg/dL (0.2-1.3); BLOOD UREA NITROGEN 17.3 mg/dL (7-17); CALCIUM 8.79 mg/dL (8.4-10.2); CHLORIDE 93.8 mmol/L (98-107); CREATININE 0.83 mg/dL (0.60-1.30); GLUCOSE 121.9 mg/dL (74-106); POTASSIUM 4.37 mmol/L (3.5-5.1); SODIUM 138.3 mmol/L (134.5-145); TOTAL PROTEIN 6.65 g/dL (6.3-8.2)
--- NOTE | 2024-06-26 16:29 | DI ---
EXAM: LEFT TIBIA-FIBULA TWO-VIEW HISTORY: Swelling, redness, previous fracture. COMPARISON: Radiographs of the left ankle from 01/07/2020. FINDINGS: see impression. IMPRESSION: Generalized osteopenia. This limits evaluation for subtle, nondisplaced fractures. As seen, no discrete fracture line. Old, healed left ankle fracture status post ORIF. Degenerative changes to the knee and ankle. If symptoms persist, repeat radiographs in 7-10 days or follow-up MRI are recommended.
[2024-06-26 16:33] LABS: ANISOCYTOSIS NOT PRESENT (NOT PRESENT)
[2024-06-26 16:34] LABS: CARBON DIOXIDE 40.2 mmol/L (22-30.0); HYPOCHROMASIA 1+ (NOT PRESENT)
--- NOTE | 2024-06-26 16:39 | US ---
EXAM: UNILATERAL LEFT LOWER EXTREMITY DEEP VENOUS ULTRASOUND WITH DOPPLER IMAGING HISTORY: Swelling, evaluate for DVT. TECHNIQUE: Gutiérrez-scale ultrasound with compression maneuvers and color and spectral Doppler ultrasound at rest and with augmentation of the veins was performed. Images were obtained and stored in a [facility] archive. COMPARISON: None FINDINGS: LEFT LOWER EXTREMITY: Common Femoral Vein: Normal compression. Normal flow on color Doppler images. Normal response to augm entation. Deep Femoral Vein: Normal compression. Normal flow on color Doppler images. Normal response to augmen tation. Femoral Vein: Normal compression. Normal flow on color Doppler images. Normal response to augmentatio n. Popliteal Vein: Normal compression. Normal flow on color Doppler images. Normal response to augmentat ion. Peroneal Vein: Normal compression. Normal flow on color Doppler images. Posterior Tibial Vein: Normal compression. Normal flow on color Doppler images. Anterior Tibial Vein: Identified/evaluate. . Greater Saphenous Vein (Superficial): Normal compression. Normal flow on color Doppler images. IMPRESSION: No deep venous thrombosis (DVT) in the left lower extremity. Please see above description.
[2024-06-26 17:44] LABS: SARS COV-2 RNA RAPID NAAT NEGATIVE (NEGATIVE)
[2024-06-26] MEDS: VANCOMYCIN 1.5 GRAM/300 ML PREMIX 1.5 GM/300 ML BAG IV ONE (17:49)
[2024-06-26] MEDS ORDERED: VENTOLIN HFA IH PRN (20:03)
[2024-06-26] MEDS: TYLENOL PO PRN (20:15)
[2024-06-26] MEDS: KLONOPIN PO SCH (21:59)
[2024-06-26] MEDS: ZOCOR PO SCH (21:59)
[2024-06-26] MEDS: MUCINEX PO SCH (21:59)
[2024-06-26] MEDS: FLONASE NAS SCH (21:59)
[2024-06-26] MEDS: MELATONIN PO SCH (21:59)
[2024-06-26 22:22] VITALS: BMI 29.2
[2024-06-26] MEDS: TORADOL IVP ONE (23:06)
[2024-06-27] MEDS: ALBUTEROL 0.083% NEB NEB PRN (04:48)
[2024-06-27 05:45] LABS: BASOPHILS % (AUTO) 0.5 % (0.0-3.0); EOSINOPHILS # (AUTO) 0.5 K/ul (0.0-0.7); EOSINOPHILS % (AUTO) 8.7 % (0.0-7.0); HEMATOCRIT 36.4 % (37.0-47.0); HEMOGLOBIN 10.8 g/dl (12.0-16.0); IMMATURE GRANULOCYTE % (AUTO) 0.2 % (0.0-5.0); LYMPHOCYTES # (AUTO) 0.4 K/uL (0.60-3.4); LYMPHOCYTES % (AUTO) 6.4 (10.0-50.0); MEAN CORPUSCULAR HEMOGLOBIN 29.2 pg (27.0-31.0); MEAN CORPUSCULAR HGB CONC 29.7 (31.8-35.4); MEAN CORPUSCULAR VOLUME 98.4 fl (81.0-99.0); MONOCYTES # (AUTO) 0.9 K/uL (0.4-2.0); MONOCYTES % (AUTO) 14.2 (0-10); NEUTROPHILS # (AUTO) 4.3 K/ul (2.0-6.9); PLATELET COUNT 235 10^3/uL (140-440); RDW COEFFICIENT OF VARIATION 15.8 % (11.6-14.8); WHITE BLOOD COUNT 6.11 K/ul (4.6-10.2)
[2024-06-27 05:57] LABS: ALANINE AMINOTRANSFERASE 15.9 U/L (0-35); ALBUMIN 3.52 g/dL (3.5-5.0); ALKALINE PHOSPHATASE 85.7 U/L (53-141); ASPARTATE AMINO TRANSFERASE 28.5 U/L (14-36); BILIRUBIN,TOTAL 0.56 mg/dL (0.2-1.3); BLOOD UREA NITROGEN 18.4 mg/dL (7-17); CALCIUM 8.84 mg/dL (8.4-10.2); CREATININE 0.74 mg/dL (0.60-1.30); GLUCOSE 106.8 mg/dL (74-106); POTASSIUM 4.14 mmol/L (3.5-5.1); SODIUM 137.4 mmol/L (134.5-145); TOTAL PROTEIN 6.64 g/dL (6.3-8.2)
[2024-06-27 06:03] LABS: CARBON DIOXIDE 39.8 mmol/L (22-30.0)
[2024-06-27] MEDS ORDERED: NON-FORMULARY MEDICATION (Fluticasone-Umeclidin-Vilanter [Trelegy Ellipta] 200-62.5-25 mcg IH SCH (09:00)
--- NOTE | 2024-06-27 09:14 | PCM.SS ---
Provider Provider: TERRANCE TEJEDA, [facility] Admission Date Admission Date: 06/19/24 Discharge Date Discharge Date: 06/27/24 Primary Care Physician Primary Care Physician: BRENNON YORK Chief Complaint Reason For Visit: CELLULITIS, COPD History of Present Illness History of Present Illness: Admitted 06/26/24 17:56, this 83 year old /WHITE/F from local SNF presented to the ER for left foot redness and mild swelling. Patient states that she noticed an area on her ankle a couple days ago that has progressively worsened. Area has been warm to touch. No open wound with drainage. Denies fever or other symptoms. US completed to r/o DVT and negative. X-ray of area completed and negative for acute findings. No WBC count elevation or elevated procal. ER provider concerned for deterioration due to age and frequency of hospitaliza tions in the last several months. Received a dose of 1.5G vancomycin in ER. Admitted to med/surg observation. This am, patient reports swelling is greatly improved as well as redness. Requesting discharge back to SNF today. 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 (ICD-10) Obstructive sleep apnea G47.33 - Obstructive sleep apnea (adult) (pediatric) (ICD-10) Muscle wasting M62.50 - Muscle wasting and atrophy, not elsewhere classified, unspecified site (ICD-10) Pain in right hip M25.551 - Pain in right hip (ICD-10) Hyperlipidemia E78.5 - Hyperlipidemia, unspecified (ICD-10) Hypotension I95.9 - Hypotension, unspecified (ICD-10) Anxiety disorder F41.9 - Anxiety disorder, unspecified (ICD-10) Iron deficiency anemia D50.9 - Iron deficiency anemia, unspecified (ICD-10) SNHL (sensorineural hearing loss) H90.5 - Unspecified sensorineural hearing loss (ICD-10) Surgical History History of hip replacement Z96.649 - Presence of unspecified artificial hip joint (ICD-10) Family History Mother Heart failure FATHER Bone cancer Social History Smoking and tobacco status: Former smoker Medications Mecications: Medications at Discharge (Home Meds & RX) albuterol sulfate 90 mcg/actuation aerosol inhaler 2 puff inhalation Q6H PRN shortness of breath or wheezing 04/02/23 benzonatate 200 mg capsule 200 mg PO Q8HR PRN cough 04/02/23 polyethylene glycol 3350 17 gram/dose oral powder (Miralax) 17 g PO DAILY 04/02/23 fluticasone propionate 50 mcg/actuation nasal spray,suspension (24 Hour Allergy Relief) 1 spray intranasal BID 04/14/24 guaifenesin 1,200 mg tablet, extended release 12 hr (Mucinex) 1,200 mg PO BID 04/14/24 simvastatin 10 mg tablet 10 mg PO BEDTIME 04/14/24 acetaminophen 325 mg tablet 650 mg PO Q4H PRN fever or pain 06/26/24 albuterol sulfate 2.5 mg/3 mL (0.083 %) solution for nebulization 2.5 mg continuous nebulization Q6H PRN shortness of breath or wheezing 06/26/24 aluminum-mag hydroxide-simethicone 400 mg-400 mg-40 mg/5 mL oral susp (Advanced Antacid-Antigas) 30 ml PO Q4H PRN indigestion/heartburn 06/26/24 atenolol 25 mg tablet 25 mg PO DAILY 06/26/24 yzhuhxwmxa-rvekbjjydmjsf-ocpvklcp 50 mg-325 mg-40 mg capsule 1 cap PO Q4H PRN headache 06/26/24 cetirizine 10 mg tablet (24Hour Allergy) 10 mg PO DAILY 06/26/24 clonazepam 0.5 mg tablet 0.25 mg PO TID 06/26/24 duloxetine 30 mg capsule,delayed release 30 mg PO DAILY 06/26/24 fluticasone fur. 200 mcg-umeclid 62.5 mcg-vilant 25 mcg inhalat.powder (Trelegy Ellipta) 1 inh inhalation DAILY 06/26/24 lidocaine 5 % topical patch 1 patch topical DAILY 06/26/24 melatonin 1 mg tablet 1 mg PO BEDTIME 06/26/24 ondansetron HCl 4 mg tablet 4 mg PO Q6H PRN nausea and vomiting 06/26/24 vilazodone 20 mg tablet 20 mg PO DAILY 06/26/24 Allergies Allergies Allergy/AdvReac Type Severity Reaction Status Date / Time cefuroxime axetil (From AdvReac RESPIRATORY, Verified 04/28/24 10:43 Ceftin) ITCHING, RASH cyclobenzaprine (From AdvReac Unknown Verified 04/28/24 10:43 Flexeril) meloxicam AdvReac Rash Verified 04/28/24 10:43 Review of Systems Constitutional: Reports No symptoms Head: Reports Normocephalic and Atraumatic Eyes: Reports No symptoms Ears: Reports No symptoms Nose: Reports No symptoms Mouth: Reports No symptoms Throat: Reports No symptoms Cardiovascular: Reports No symptoms Respiratory: Reports No symptoms Gastrointestinal: Reports No symptoms Genitourinary: Reports No Symptoms Musculoskeletal: Reports No symptoms Dermatologic: Reports Skin Changes (redness to L ankle) Endocrine: Reports No symptoms Hematology: Reports No symptoms Immunology: Reports No symptoms Neurological: Reports No symptoms Psychiatric: Reports No symptoms Physical Examination Appearance: Positive No Apparent Distress and Alert and Oriented x3 Head: Positive Normocephalic and Atraumatic Eyes: Positive PILO ENT: Positive Not Examined Neck: Positive Supple, Non-Tender and Trachea Midline Heart: Positive RRR and No Murmurs Respiratory: Positive Airway patent, Breath Sounds Clear, Bilaterally, Breath Sounds Diminished and Respirations Nonlabored GI/: Positive Soft, Nontender, Bowel sounds normal and No Distention Extremities: Positive Edema (mild nonpitting BLE, erythema to L ankle, no open area) and Pedal Pulses Palpable Bilaterally Neurological: Positive Sensation Intact, Motor Intact, Reflexes Intact, Alert and Oriented Vital Signs (Last 4 Hours) Vital Signs Last 4 Hours: Vital Signs: Last 4 Hours 06/27/24 06:00 06/27/24 07:00 06/27/24 08:00 Oxygen Delivery Method Nasal Cannula Nasal Cannula Nasal Cannula Labs This Visit Labs This Visit: Labs This Visit 06/26/24 06/26/24 06/27/24 16:06 17:25 05:40 WBC 6.06 6.11 RBC 3.80 L 3.70 L Hgb 11.0 L 10.8 L Hct 37.2 36.4 L MCV 97.9 98.4 MCH 28.9 29.2 MCHC 29.6 L 29.7 L RDW Coeff of Kathrin 15.9 H 15.8 H Plt Count 250 235 Immature Gran % (Auto) 0.5 0.2 Neut % (Auto) 71.3 70.0 Lymph % (Auto) 8.1 L 6.4 L [place] % (Auto) 13.7 H 14.2 H Eos % (Auto) 6.1 8.7 H Baso % (Auto) 0.3 0.5 Neut # (Auto) 4.3 4.3 Lymph # (Auto) 0.5 L 0.4 L [place] # (Auto) 0.8 0.9 Eos # (Auto) 0.4 0.5 Baso # (Auto) 0.0 0.0 Immature Gran # (Auto) 0.0 0.0 Hypochromasia 1+ Anisocytosis Not present Sodium 138.3 137.4 Potassium 4.37 4.14 Chloride 93.8 L 95.0 L Carbon Dioxide 40.2 H* 39.8 H Anion Gap 8.67 6.74 BUN 17.3 H 18.4 H Creatinine 0.83 0.74 Estimated GFR (MDRD) 66.00 75.00 BUN/Creatinine Ratio 20.84 24.86 Glucose 121.9 H 106.8 H Lactic Acid 1.01 Calcium 8.79 8.84 Total Bilirubin 0.39 0.56 AST 29.1 28.5 ALT 16.2 15.9 Alkaline Phosphatase 77.2 85.7 Total Protein 6.65 6.64 Albumin 3.50 3.52 Globulin 3.15 3.12 Albumin/Globulin Ratio 1.11 1.12 Procalcitonin 0.08 SARS CoV-2 RNA Rapid KIMBERLEY Negative Imaging Imaging: EXAM: LEFT TIBIA-FIBULA TWO-VIEW HISTORY: Swelling, redness, previous fracture. COMPARISON: Radiographs of the left ankle from 01/07/2020. FINDINGS: see impression. IMPRESSION: Generalized osteopenia. This limits evaluation for subtle, nondisplaced fractures. As seen, no discrete fracture line. Old, healed left ankle fracture status post ORIF. Degenerative changes to the knee and ankle. If symptoms persist, repeat radiographs in 7-10 days or follow-up MRI are recommended. Review Review Statement: I have independently reviewed and interpreted the labs/EKGs/imaging that were ordered by the ER provider. I have reviewed all outside records that are available currently in our EMR including imaging/notes/labs from previous visits. Plan Reccomendations/Plan: 1. Cellulitis to L lower extremity - per patient, swelling and redness improved overnight, received 1 dose of IV vancomycin, no drainage or open area to obtain culture. No fever, WBC count elevation, tachycardia. Patient requesting discharge today on oral antibiotics. Covering with clindamycin 300 mg Q6H x 7 days. Additional Planning: Case discussed with ED Physician, Dr. Blanca. DVT Prophylaxis: Ambulation Disposition: Admit to: Med/Surg Observation Full Code Discussed Plan of Care with Dr. Edgar Carreon. If patient discharged with Left Ventricular Systolic Dysfunction: NA Discharged with a beta wm? [] If no, why not? [] Discharged with an arnulfo/arb? [] If no, why not? [] Diagnosis: Cellulitis to Left lower extremity Diet: Regular Activity: as tolerated Follow-up with PCP no later than 1 week Medications: Clindamycin Q6H x 7 days total, 1 dose administered here Review With Patient Reviewed with Patient and Family: Patient and family have been counseled on condition and care plan and have no immediate questions. I have personally discussed and reviewed the patient's visit/current labs/imaging/decision making with Dr. Marlen Carreon, my supervising attending. Total number of minutes spent with patient 85 min. More than 50% of the time spent with this patient was devoted to counseling and coordination of care. Time of Admission:06/26/24 17:56 Time of Discharge: 06/27/24 09:30 Discharge Plan Discharge Discharge Orders: Discharge Patient (ONCE); Ordered 06/27/24 Ordered By: LUI RICO Activity Restrictions/Additional Instructions: Diagnosis: Cellulitis to Left lower extremity Diet: Regular Activity: as tolerated Follow-up with PCP no later than 1 week Medications: Clindamycin Q6H x 7 days total, 1 dose administered here Instructions: Cellulitis (GEN) Patient Disposition: TRANSFER SNF Prescriptions: New clindamycin HCl 300 mg capsule 300 mg PO Q6HR Qty: 27 0RF Continued polyethylene glycol 3350 [Miralax] 17 gram/dose powder 17 g PO DAILY albuterol sulfate 90 mcg/actuation HFA aerosol inhaler 2 puff INHALATION Q6H PRN (Reason: shortness of breath or wheezing) benzonatate 200 mg capsule 200 mg PO Q8HR PRN (Reason: cough) guaifenesin [Mucinex] 1,200 mg tablet extended release 12hr 1,200 mg PO BID fluticasone propionate [24 Hour Allergy Relief] 50 mcg/actuation spray,suspension 1 spray intranasal BID Rx Instructions: administer into one nostril in am and alternating nostril in pm simvastatin 10 mg tablet 10 mg PO BEDTIME acetaminophen 325 mg tablet 650 mg PO Q4H PRN (Reason: fever or pain) albuterol sulfate 2.5 mg /3 mL (0.083 %) solution for nebulization 2.5 mg continuous nebulization Q6H PRN (Reason: shortness of breath or wheezing) Patient Comments: [NO ORIGINAL SIG] duloxetine 30 mg capsule,delayed release(DR/EC) 30 mg PO DAILY atenolol 25 mg tablet 25 mg PO DAILY xabmumgypy-zppnntqqwtkef-zxhz 50-325-40 mg capsule 1 cap PO Q4H PRN (Reason: headache) cetirizine [24Hour Allergy] 10 mg tablet 10 mg PO DAILY clonazepam 0.5 mg tablet 0.25 mg PO TID Patient Comments: [NO ORIGINAL SIG] melatonin 1 mg tablet 1 mg PO BEDTIME alum-mag hydroxide-simeth [Advanced Antacid-Antigas] 400-400-40 mg/5 mL suspension 30 ml PO Q4H PRN (Reason: indigestion/heartburn) ondansetron HCl 4 mg tablet 4 mg PO Q6H PRN (Reason: nausea and vomiting) vilazodone 20 mg tablet 20 mg PO DAILY lidocaine 5 % adhesive patch,medicated 1 patch topical DAILY Rx Instructions: leave on most painful area for up to 12 hrs Trelegy Ellipta 200-62.5-25 mcg blister with device 1 inh inhalation DAILY Did you review [place] [employer] for ALL controlled substances?: No Discussed opioids are addictive and Narcan is available by prescription or from pharmacy.: No Condition: Fair
[2024-06-27] MEDS: CLEOCIN PO SCH (09:39)
[2024-06-27] MEDS: CYMBALTA PO SCH (09:41)
[2024-06-27] MEDS: CLARITIN PO SCH (09:42)
[2024-06-27] MEDS: TENORMIN PO SCH (09:42)
[2024-06-27] MEDS: MIRALAX PO SCH (09:44)
[2024-06-27] MEDS: SPIRIVA IH SCH (09:48)
[2024-06-27] MEDS: LIDODERM 5 % PATCH TP SCH (09:49)
[2024-06-27] MEDS: SYMBICORT 160-4.5 MCG INHALER IH SCH (09:54)
[2024-06-27 10:19] VITALS: BP 158/91; PULSE 82; RESP 16; TEMP 97
== END 2024-06-27 11:50 ==
LOC: ED 15:48 → MEDSURG B 15:48
PROVIDERS: ADMIT Hospitalist; ATTEND Nurse Practitioner Family
DX: L03.116 Cellulitis of left lower limb; R00.0 Tachycardia, unspecified; Z79.899 Other long term (current) drug therapy; J44.9 Chronic obstructive pulmonary disease, unspecified; Z51.81 Encounter for therapeutic drug level monitoring; Z20.822 Contact with and (suspected) exposure to COVID-19